=== PATIENT | male | born 1955 | race Caucasian/White ===

== ENCOUNTER → 2021-03-24 | Outpatient (CLI) | payer MEDICARE, OTHER | LOC: WOUNDCARE 08:48 | PROVIDERS: ATTEND Family Medicine | DX: E11.621 Type 2 diabetes mellitus with foot ulcer (principal); I70.261 Atherosclerosis of native arteries of extremities with gangrene, right leg; L97.512 Non-pressure chronic ulcer of other part of right foot with fat layer exposed; E11.65 Type 2 diabetes mellitus with hyperglycemia; E11.40 Type 2 diabetes mellitus with diabetic neuropathy, unspecified; T65.292A Toxic effect of other tobacco and nicotine, intentional self-harm, initial encounter | CPT/HCPCS: A6197; G0463; L4386; 99204 ==

== ENCOUNTER → 2021-03-24 | Outpatient (CLI) | payer MEDICARE, OTHER ==
[2021-03-24 11:27] LABS: BASOPHILS # (AUTO) 0.2 10^3/uL (0.0-0.1); BASOPHILS % (AUTO) 2 % (0-10); EOSINOPHILS # (AUTO) 0.2 10^3/uL (0.0-0.3); EOSINOPHILS % (AUTO) 3 % (0-10); HEMATOCRIT 45 % (40-54); HEMOGLOBIN 14.4 g/dL (13.3-17.7); LYMPHOCYTES # (AUTO) 2.7 10^3/uL (1.0-4.0); LYMPHOCYTES % (AUTO) 31 % (12-44); MEAN CORPUSCULAR HEMOGLOBIN 30 pg (25-34); MEAN CORPUSCULAR HGB CONC 32 g/dL (32-36); MEAN CORPUSCULAR VOLUME 92 fL (80-99); MEAN PLATELET VOLUME 12.9 fL (9.0-12.2); MONOCYTES # (AUTO) 0.7 10^3/uL (0.0-1.0); MONOCYTES % (AUTO) 8 % (0-12); NEUTROPHILS # (AUTO) 4.7 10^3/uL (1.8-7.8); NEUTROPHILS % (AUTO) 56 % (42-75); PLATELET COUNT 201 10^3/uL (130-400); WHITE BLOOD COUNT 8.5 10^3/uL (4.3-11.0)
[2021-03-24 11:34] LABS: ALBUMIN 4.2 GM/DL (3.2-4.5); BILIRUBIN,TOTAL 0.4 MG/DL (0.1-1.0); CALCIUM 9.7 MG/DL (8.5-10.1); CREATININE SERUM 1.56 MG/DL (0.60-1.30); POTASSIUM 4.3 MMOL/L (3.6-5.0); TOTAL PROTEIN 8.4 GM/DL (6.4-8.2)
== END ==
LOC: LAB 10:20
PROVIDERS: ATTEND Family Medicine
DX: E11.621 Type 2 diabetes mellitus with foot ulcer (principal); E11.65 Type 2 diabetes mellitus with hyperglycemia
CPT/HCPCS: 36415; 80053; 83036; 85025

== ENCOUNTER → 2021-03-31 | Outpatient (CLI) | payer MEDICARE, OTHER | LOC: WOUNDCARE 08:05 | PROVIDERS: ATTEND Family Medicine | DX: E11.52 Type 2 diabetes mellitus with diabetic peripheral angiopathy with gangrene (principal); E11.621 Type 2 diabetes mellitus with foot ulcer; E11.65 Type 2 diabetes mellitus with hyperglycemia; E11.40 Type 2 diabetes mellitus with diabetic neuropathy, unspecified; I70.261 Atherosclerosis of native arteries of extremities with gangrene, right leg; T65.222A Toxic effect of tobacco cigarettes, intentional self-harm, initial encounter | CPT/HCPCS: 99213 ==

== ENCOUNTER → 2021-04-07 | Outpatient (CLI) | payer MEDICARE, OTHER | LOC: WOUNDCARE 07:58 | PROVIDERS: ATTEND Family Medicine | DX: E11.621 Type 2 diabetes mellitus with foot ulcer (principal); E11.52 Type 2 diabetes mellitus with diabetic peripheral angiopathy with gangrene; L97.512 Non-pressure chronic ulcer of other part of right foot with fat layer exposed; E11.65 Type 2 diabetes mellitus with hyperglycemia; E11.40 Type 2 diabetes mellitus with diabetic neuropathy, unspecified; I70.235 Atherosclerosis of native arteries of right leg with ulceration of other part of foot; T65.222A Toxic effect of tobacco cigarettes, intentional self-harm, initial encounter | CPT/HCPCS: 11042; G0463 ==

== ENCOUNTER → 2021-04-12 | Outpatient (CLI) | payer MEDICARE, OTHER | LOC: CARD 12:00 | PROVIDERS: ATTEND Internal Medicine Cardiovascular Disease | DX: I11.9 Hypertensive heart disease without heart failure (principal); I08.3 Combined rheumatic disorders of mitral, aortic and tricuspid valves; I25.10 Atherosclerotic heart disease of native coronary artery without angina pectoris | CPT/HCPCS: 93306 ==

== ENCOUNTER → 2021-04-14 | Outpatient (CLI) | payer MEDICARE, OTHER | LOC: WOUNDCARE 07:57 | PROVIDERS: ATTEND Family Medicine | DX: E11.621 Type 2 diabetes mellitus with foot ulcer (principal); L97.512 Non-pressure chronic ulcer of other part of right foot with fat layer exposed; E11.65 Type 2 diabetes mellitus with hyperglycemia; E11.42 Type 2 diabetes mellitus with diabetic polyneuropathy; I70.235 Atherosclerosis of native arteries of right leg with ulceration of other part of foot; T65.222A Toxic effect of tobacco cigarettes, intentional self-harm, initial encounter; M20.41 Other hammer toe(s) (acquired), right foot; E11.52 Type 2 diabetes mellitus with diabetic peripheral angiopathy with gangrene | CPT/HCPCS: 11042; G0463 ==

== ENCOUNTER → 2021-04-21 | Outpatient (CLI) | payer MEDICARE, OTHER | LOC: WOUNDCARE 08:03 | PROVIDERS: ATTEND Family Medicine | DX: E11.40 Type 2 diabetes mellitus with diabetic neuropathy, unspecified (principal); E11.65 Type 2 diabetes mellitus with hyperglycemia; T65.222A Toxic effect of tobacco cigarettes, intentional self-harm, initial encounter; M20.41 Other hammer toe(s) (acquired), right foot | CPT/HCPCS: 99212 ==

== ENCOUNTER → 2021-05-10 | Outpatient (CLI) | payer MEDICARE, OTHER ==
[~2021-05-10] MED LIST: CATHETER FLUSH 10 ML SYR IV PRN; REGADENOSON 0.4 MG/5 ML SYR (LEXISCAN) IV ONE
[2021-05-10 09:10] VITALS: BP 175/84
--- NOTE | 2021-05-10 11:20 | Cardiology Stress Test Report ---
Stress Test Report Date of Procedure/Referring: Date of Procedure: May 10, 2021 PCP Murtaza Khoury MD Admitting Physician No,Local Physician Indications: CAD Baseline Heart Rate: 70 Baseline Blood Pressure: Blood Pressure Systolic: 175 Blood Pressure Diastolic: 84 Baseline Vitals Vital Signs Date Time Temp Pulse Resp B/P (MAP) Pulse Ox O2 Delivery O2 Flow Rate FiO2 05/10/21 09:10 85 16 175/84 (114) 97 Room Air Baseline EKG: Baseline EKG: NSR Summary After explaining the procedure to the patient, he signed a consent and then brought to the stress nuclear laboratory. Patient received 0.4 mg Lexiscan for stress test, ECG, heart rate and blood pressure were monitored continuously. Resting and stress dose of radio tracer were injected, imaging was acquired and reviewed in short axis, horizontal long axis and vertical long axis views. TID: 1.05 SSS: 35 SDS: 8 EF: 23 1. Patient tolerated Lexiscan well 2. Fixed defect involving the lateral wall anterolateral wall and inferolateral wall, mild reversibility at the inferior wall, patient has extensive coronary artery disease and multiple interventions in the past. 3. Prominent left ventricle with diffuse left ventricular hypokinesia more pronounced at the inferior wall and inferolateral wall, ejection fraction 23% MURTAZA KHOURY MD May 10, 2021 11:20
== END ==
LOC: CARD 07:30
PROVIDERS: ATTEND Internal Medicine Cardiovascular Disease
DX: I25.10 Atherosclerotic heart disease of native coronary artery without angina pectoris (principal); I10 Essential (primary) hypertension
CPT/HCPCS: 78452; 93017; A9502

== ENCOUNTER 2021-06-02 11:00 | Day surgery (SDC) | payer MEDICARE, OTHER ==
[~2021-06-02] VITALS: Ht 193 cm; Wt 111.9 kg
[2021-06-02] VITALS (11 sets, daily range): BP systolic 117–166; BP diastolic 66–88
--- OUTSIDE RECORDS SUMMARY | 2021-06-02 08:47 | XMS REPORT | Encounter Summary ---
Author Author [facility] Organization [facility] Address Unknown Phone Unavailable Care Team Providers Care Comfort Station Attendant Name Role Phone Katie Simpson MD Unavailable Katie Simpson MD PCP Yamile Delgado MD Unavailable Devorah Strickland MD Unavailable Gabby Herman RN Unavailable Unavailable Kirsten Marrero RN Unavailable Unavailable Waldemar Sandhu MD Unavailable [phone] Diana Moore MD Unavailable Reason for Visit * Reason Comments Medication Refill Encounter Details Care Team Description Date Type Department Katie Simpson MD [address] [facility] [place] [address] 05/10/2021 Refill Family Medicine: [facility], Medical Pavilion [address] [facility] Level 2, Pod [address] [place] [address] Social History Date Tobacco Use Types Packs/Day Years Used 1973 - 05/29/2020 Current Some Day Smoker Cigarettes 2 51 Smokeless Tobacco: Never Used Comments Alcohol Use Standard Drinks/Week occasionally Yes 0 (1 standard drink = 0.6 o z pure alcohol) Alcohol Habits Answer Date Recorded How often do you have a drink containing alcohol? No t asked How many drinks containing alcohol do you have on No t asked a typical day when you are drinking? How often do you have six or more drinks on one Not asked occasion? Comment: occasionally 11/18/2016 Sex Assigned at Date Recorded Male 10/02/2019 1:54 PM CDT documented as of this encounter Functional Status Date of Assessment Functional Status Response 03/09/2021 Does the patient have a hearing impairment: No 03/09/2021 Does the patient have a visual impairment: Yes 03/09/2021 Does the patient have impaired ambulation: No 03/09/2021 Does the patient have an activity of daily living No (ADL) impairment: 03/09/2021 Does the patient have an instrumental activity of No daily living (IADL) impairment: Date of Assessment Cognitive Status Response 03/09/2021 Does the patient have a cognitive impairment: No documented as of this encounter Plan of Treatment Not on filedocumented as of this encounter Goals Goal Patient Associated Recent Progress Patient-Stat Aut hor Goal Type Problems ed? [facility] Yes Anna Pascual RN documented as of this encounter Visit Diagnoses Not on filedocumented in this encounter Additional Health Concerns Noted Time Assessment 03/09/2021 1:46 PM CDT A fall risk assessment has been complet ed for the patient 09/30/2020 10:00 AM CDT PHQ-2 Depression Total Score: 1 documented as of this encounter Care Teams Start Date End Date Comfort Station Attendant Relationship Specialty 12/24/14 Katie Simpson MD PCP - [address] [address] 12/08/14 Katie Simpson MD [address] [address] 04/01/15 Yamile Delgado MD [facility] [address] Medicine Ortho/Med Pavilion Lvl 1 [place] [address] 04/17/15 Devorah Strickland MD [facility] [address] [facility] Medicine Ortho/Med Pavilion Lvl 1 [place] [address] 04/24/15 Gabby Herman, RN Emergency Medicine 04/27/15 Kirsten Marrero, ERLIN Cardiovascul ar Disease 06/10/15 Waldemar Sandhu, Gastroentero logy [address] [place], [place] [id number] 06/11/15 Diana Moore MD [facility] [address] [facility] Ortho/Med Pavilion Lvl 2B [place], [place] [id number] documented as of this encounter
--- OUTSIDE RECORDS SUMMARY | 2021-06-02 08:47 | XMS REPORT | Encounter Summary ---
Author Author [facility] Organization [facility] Address Unknown Phone Unavailable Care Team Providers Care Ambulance Driver Name Role Phone Katie Simpson MD Unavailable Katie Simpson MD PCP Yamile Delgado MD Unavailable Devorah Strickland MD Unavailable Gabby Herman RN Unavailable Unavailable Kirsten Marrero RN Unavailable Unavailable Waldemar Sandhu MD Unavailable [phone] Diana Moore MD Unavailable Reason for Visit * Reason Comments Medication Refill Encounter Details Care Team Description Date Type Department Katie Simpson MD [address] [facility] [place] [address] 05/10/2021 Refill Family Medicine: [facility], Medical Pavilion [address] [facility] Level 2, Pod [address] [place] [address] Social History Date Tobacco Use [...] impairment: No documented as of this encounter Ordered Prescriptions Start Date End Date Prescription Sig Dispensed Refills 05/10/2021 glimepiride (AMARYL) 4 mg TAKE 2 60 tablet 0 tablet TABLETS BY MOUTH EVERY MORNING documented in this encounter Miscellaneous Notes * Telephone Encounter - Asiya Joshua - 05/10/2021 2:07 PM TELEPHONE ORDER SUPERVISOR Pt was last seen 09/30/2020. PHONE ORDER SUPERVISOR documented in this encounter Plan of Treatment Not on filedocumented as of this encounter Goals Goal Patient Associated Recent Progress Patient-Stat Aut hor Goal Type Problems ed? [facility] Yes Anna Pascual RN documented as of this encounter Visit Diagnoses Not on filedocumented in this encounter Discontinued Medications Start Date End Date Medication Sig Discontinue Reason 02/12/2021 05/10/2021 glimepiride (AMARYL) 4 mg TAKE 2 tablet TABLETS BY MOUTH EVERY MORNING documented as of this encounter Additional Health Concerns Noted Time Assessment 03/09/2021 1:46 PM CDT A fall risk assessment has been complet ed for the patient 09/30/2020 10:00 AM CDT PHQ-2 Depression Total Score: 1 documented as of this encounter Care Teams Start Date End Date Ambulance Driver Relationship Specialty 12/24/14 Katie Simpson MD PCP - General Family [address] Medicine [facility] Pod [address] [place] [address] 12/08/14 Katie Simpson MD Family [address] [facility] Medicine [facility] [place] [address] 04/01/15 Yamile Delgado MD Family [address] [facility] Medicine Ortho/Med Pavilion Lvl 1 [place] [address] 04/17/15 Devorah Strickland MD Family [address] [facility] Medicine Ortho/Med Pavilion Lvl 1 [place] [address] 04/24/15 Gabby Herman, RN Emergency Medicine 04/27/15 Kirsten Marrero, ERLIN Cardiovascul ar Disease 06/10/15 Waldemar Sandhu, Gastroentero MD [address] [place] [address] 06/11/15 Diana Moore MD [facility] [address] [facility] logy Ortho/Med Pavilion Lvl [address]B [place] [address] documented as of this encounter
--- OUTSIDE RECORDS SUMMARY | 2021-06-02 08:47 | XMS REPORT | Encounter Summary ---
Author Author [facility] Organization [facility] Address Unknown Phone Unavailable Care Team Providers Care Four Slide Operator Name Role Phone Katie Simpson MD Unavailable Katie Simpson MD PCP Yamile Delgado MD Unavailable Devorah Strickland MD Unavailable Gabby Herman RN Unavailable Unavailable Kirsten Marrero RN Unavailable Unavailable Waldemar Sandhu MD Unavailable [phone] Diana Moore MD Unavailable Reason for Visit * Reason Comments Medication Refill Encounter Details Care Team Description Date Type Department Katie Simpson MD [address] [facility] [place] [address] Type 2 diabetes mellitus with diabetic p olyneuropathy, with long-term current use of insulin ([facility]) 04/28/2021 Refill Family Medicine: [facility] [address] [facility] [address] [place] [address] Social History Date Tobacco Use Types Packs/Day [...] impairment: No documented as of this encounter Miscellaneous Notes * Telephone Encounter - Avinash Madrid - 04/28/2021 6:46 PM WEB RETAILER Some Protocol elements NOT Met Medication name: insulin degludec Medication Strength: 18units/daily Office visit due and Labs due Provider not on approved list. Routed to Provider RETAILER documented in this encounter Plan of Treatment Not on filedocumented as of this encounter Goals Goal Patient Associated Recent Progress Patient-Stat Aut hor Goal Type Problems ed? [facility] Yes Anna Pascual RN documented as of this encounter Visit Diagnoses Diagnosis Type 2 diabetes mellitus with diabetic polyneuropathy, with long-term current use of insulin (HCC) documented in this encounter Additional Health Concerns Noted Time Assessment 03/09/2021 1:46 PM CDT A fall risk assessment has been complet ed for the patient 09/30/2020 10:00 AM CDT PHQ-2 Depression Total Score: 1 documented as of this encounter Care Teams Start Date End Date Four Slide Operator Relationship Specialty 12/24/14 Katie Simpson MD PCP - General [place] [address] [address] [facility] [address] [place] [address] 12/08/14 Katie Simpson MD [place] [address] [facility] [place] [address] 04/01/15 Yamile Delgado MD [facility] [address] [facility] Medicine Ortho/Med Pavilion Lvl 1 [place] [address] 04/17/15 Devorah Strickland MD [facility] [address] [facility] Medicine Ortho/Med Pavilion Lvl 1 [place] [address] 04/24/15 Gabby Herman, ERLIN Emergency Medicine 04/27/15 Kirsten Marrero, ERLIN Cardiovascul ar Disease 06/10/15 Waldemar Sandhu, Gastroentero logy [address] [place] [address] 06/11/15 Diana Moore MD [facility]astro[facility] [address] [facility] logy Ortho/Med Pavilion Lvl 2B [place] [address] documented as of this encounter
--- OUTSIDE RECORDS SUMMARY | 2021-06-02 08:47 | XMS REPORT | Encounter Summary ---
Author Author [facility] Organization [facility] Address Unknown Phone Unavailable Care Team Providers Care Seismic Interpreter Name Role Phone Katie Simpson MD Unavailable Katie Simpson MD PCP Yamile Delgado MD Unavailable Devorah Strickland MD Unavailable Gabby Herman RN Unavailable Unavailable Kirsten Marrero RN Unavailable Unavailable Waldemar Sandhu MD Unavailable [phone] Diana Moore MD Unavailable Reason for Visit * Reason Comments Medication Refill Encounter Details Care Team Description Date Type Department Katie Simpson MD [address] [facility] [place] [address] Type 2 diabetes mellitus with diabetic p olyneuropathy, with long-term current use of insulin (HCC) 04/29/2021 Refill Family Medicine: [facility] [address] [facility] [address], [address] [place] [address] Social History Date Tobacco Use [...] Patient-Stat Aut hor Goal Type Problems ed? [facility] Yes Anna Pascual RN documented as [...] encounter Care Teams Start Date End Date Seismic Interpreter Relationship Specialty 12/24/14 Katie Simpson MD PCP - General [address] [place] [address] 12/08/14 Katie Simpson MD [address] [place] [address] 04/01/15 Yamile Delgado MD [facility] [address] [facility] Medicine Ortho/Med Pavilion Lvl 1 [place] [address] 04/17/15 Devorah Strickland MD Family [address] [facility] Medicine Ortho/Med Pavilion Lvl 1 [place] [address] 04/24/15 Gabby Herman, RN Emergency Medicine 04/27/15 Kirsten Marrero, ERLIN Cardiovascul ar Disease 06/10/15 Waldemar Sandhu, Gastroentero logy [address] [place] [address] 06/11/15 Diana Moore MD Gastro[facility]ero [address] [facility] logy Ortho/Med Pavilion [address]vl [address] [place] [address] documented as of this encounter
--- OUTSIDE RECORDS SUMMARY | 2021-06-02 08:47 | XMS REPORT | Clinical Summary ---
Author Author [facility] Organization [facility] Address Unknown Phone Unavailable Care Team Providers Care Canal Driver Name Role Phone Katie Simpson MD Unavailable Katie Simpson MD PCP Yamile Delgado MD Unavailable Devorah Strickland MD Unavailable Gabby Herman RN Unavailable Unavailable Kirsten Marrero RN Unavailable Unavailable Waldemar Sandhu MD Unavailable [phone] Diana Moore MD Unavailable Source Comments Some departments are not documenting in the electronic medical record. If you d o not see the information that you expected, contact Release of Information in [facility] Health Information Management department at [phone] for further assistan ce in locating additional records.[facility] Allergies Comments Active Allergy Reactions Severity Noted Date Penicillins SWOLLEN High 12/08/2014 TONGUE Medications End Date Status Medication Sig Dispensed Refills Start Date Active aspirin EC 81 mg tablet Take 81 mg by 0 mouth daily. Active Blood-Glucose Meter kit Freestyle 1 kit 0 lite meter. 9 Use as directed daily along with test strip and lancets. Active acetaminophen (TYLENOL) You can take 0 500 mg tablet 1000 mg by 9 mouth every 6-8 hours. Max of 4,000 mg of acetaminophen in 24 hours. Active cyanocobalamin (VITAMIN Take 500 mcg 0 B-12) 500 mcg tablet by mouth daily. Active lancets MISC Use one each 300 each 2 as directed 0 three times daily. Additional Information Patient taking differently: 1 each Test DAILY, Checks BG 1-2 times daily, Reported on 07/28/2020 Active blood sugar diagnostic Use one strip 200 strip 3 0 test strip as directed 0 three times daily. Freestyle lite test strips Additional Information Patient taking differently: 1 strip Misc.(Non-Brant g; Combo Route) DAILY, Freestyle lite test strips Checks BG 1-2 times daily, Reported on 07/28/2020 Active nitroglycerin (NITROSTAT) Place one 25 tablet 1 0.4 mg tablet tablet under 0 tongue every 5 minutes as needed for Chest Pain. Active sotaloL (BETAPACE) 80 mg Take one 180 tablet 3 tablet tablet by 0 mouth twice daily. Active fenofibrate Take one 90 tablet 3 nanocrystallized (TRICOR) tablet by 1 145 mg tablet mouth daily. Take with food. Active atorvastatin (LIPITOR) 40 Take one 30 tablet 11 mg tabletIndications: tablet by 1 hyperlipidemia mouth daily. Indications: excessive fat in the blood Active BD UF LUCIE PEN NEEDLES 32 USE DAILY 200 each 1 gauge x 5/32" pen DIRECTED 1 needleIndications: Type 2 diabetes mellitus with other circulatory complication, without long-term current use of insulin (HCC) Active primidone (MYSOLINE) 50 Take one 90 tablet 5 mg tablet tablet by 1 mouth daily. Wk 1: 1/2 tab QHS, Wk 2: 1 tab at night, Wk 3: 1.5 tab QHS then 2 tab at night Active amLODIPine (NORVASC) 10 Take one 90 tablet 3 mg tablet tablet by 1 mouth daily. 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 Indications: type 2 diabetes mellitus Active metFORMIN-XR (GLUCOPHAGE TAKE 2 120 tablet 0 1 XR) 500 mg extended TABLETS BY 1 release tablet MOUTH TWICE DAILY Active insulin degludec (TRESIBA Inject 45 mL 1 FLEXTOUCH U-100) 100 eighteen 1 unit/mL (3 mL) injection Units under penIndications: type 2 the skin at diabetes mellitus bedtime daily. Indications: type 2 diabetes mellitus Active glimepiride (AMARYL) 4 mg TAKE 2 60 tablet 0 tablet TABLETS BY 1 MOUTH EVERY MORNING 05/10/2021 Discontinued glimepiride (AMARYL) 4 mg TAKE 2 180 tablet 0 tablet TABLETS BY 1 MOUTH EVERY MORNING Active Problems Problem Noted Date Amputation of right great toe 09/22/2020 Overview: Formatting of this note might be differ ent from the original. 09/22/20 L ast Assessment & Plan: Formatting of this note might be differ ent from the original. Running stitch removed. Others remain. Cont with dressing changes. Heriberto wound dry. Call w concerns. WBAT in [facility] Osteomyelitis of right foot 09/07/2020 Angiopathy, diabetic 06/24/2020 Non-pressure chronic ulcer of right heel and midfoot with fat layer exposed 06/24/2020 Non-pressure chronic ulcer of other part of right joshua t with fat layer 06/24/2020 exposed Right foot ulcer 06/10/2020 PVD (peripheral vascular disease) 06/10/2020 Laceration of finger, right, with tendon 10/02/2019 Chronic systolic heart failure 07/01/2019 Paroxysmal atrial fibrillation 07/01/2019 Chronic kidney disease, stage 3 07/01/2019 Type 2 diabetes mellitus with diabetic neuropathy, wi thout long-term 07/01/2019 current use of insulin Type 2 diabetes mellitus with stage 3 chronic kidney disease, without 07/01/2019 long-term current use of insulin Peripheral vascular disease 11/05/2018 Overview: Formatting of this note might be differ ent from the original. 06/10/2020-AARO with drug coated balloon angioplasty of the right SFA and right TP trunk/proximal PT arteries Claudication 07/23/2018 Encounter for screening for lung cancer 02/09/2018 Type 2 diabetes mellitus with diabetic polyneuropathy , without long-term 05/15/2017 current use of insulin Arthritis of both knees 05/15/2017 ICD (implantable cardioverter-defibrillator), dual, i n situ 03/17/2016 Overview: Formatting of this note might be differ ent from the original. 03/17/16 Medtronic (dual-chamber) IC D - Dr. 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 09/28/2004-[facility]- CABGx3- SV G to Posterior ascending; SVG to OM; FERNANDO to LAD 07/03/10-[facility] [employer] [facility]-Cath- PCI Wi th SURAJ to Vein Graft of RCA 07/03/1038-[facility]-EF 35%; dilated LV; mild Mitral insufficiency, trace TR; 02/17/1655-Xmpyoxxa-htdm prior infarct inv olving the inferior, inferolateral and lateral cano. There is a mild degr ee of periinfarct ischemia. There is some viability in the mid to apical inf erior, lateral and inferolateral wall. There does not appear to be viabi lity in the more basal segments, at least after about a 4 hour delay.EF 36% 02/18/1665-Rqah-Cxeetdovbn LV cavity dilat ion with thinned and akinetic interior and inferior lateral cnao. The septal wall has moderate hypertrophy without LVOT obstruction; E F 30-35%. Grade I diastolic function is present; Qualitative RV siz e and function are within normal limits Normal atria sizes; Mild mitral regurgitation; Pulmonary systolic pressure could not be accurately estima cesar due to lack of significant tricuspid regurgitant jet 02/18/16: Cath showed occluded grafts to RCA and to OMB - no intervention 07/23/18-cardiac catheterization. FERNANDO g raft to LAD was patent. REGULATORY PRODUCT MANAGER of the [place] RCA. 90% proximal and 100% total chronic total occlusion in the distal left circumflex artery, treated with drug-eluting stent 2.25 x 28 Xience Jennie distally and a 2.55 x 33 Xience Jennie proximally Type 2 diabetes mellitus with other circulatory compl ications 12/12/2014 Essential hypertension 12/12/2014 Neuropathy Resolved Problems Problem Noted Date Resolved Date Nicotine dependence, cigarettes, uncomplicated 04/10/2018 09/30/2020 Personal history of tobacco use 02/09/20182017 Unstable angina 02/17/2016 05/15/2017 Tobacco use 02/17/2016 04/10/2018 Weight loss 06/10/2015 04/10/2018 Emesis 04/25/2015 02/18/2016 Pancreatitis 04/25/2015 04/10/2018 Encounters Care Team Description Date Type Specialty Katie Simpson MD 05/10/2021 Refill Family Medicine Katie Simpson MD 05/10/2021 Refill Family Medicine Katie Simpson MD Type 2 diabetes mellitus with diabetic p olyneuropathy, with long-term current use of insulin (HCC) 04/29/2021 Refill Family Medicine Katie Simpson MD Type 2 diabetes mellitus with diabetic p olyneuropathy, with long-term current use of insulin (HCC) 04/28/2021 Refill Family Katie Álvarez MD 04/19/2021 Refill Family Medicine Katie Simpson MD 04/19/2021 Refill Family Medicine Dion Peñaloza MD Medication Refill 04/19/2021 Refill Cardiology Bisi Petersen, ERLIN 04/15/2021 Documentation Cardiothoracic Surg Iva Chatterjee, PHARMD Type 2 diabetes mellitus with diabetic p olyneuropathy, without long-term current use of insulin (HCC) (Primary Dx) 04/14/2021 Clinical Family Medicine Support Hu Keith, ERLIN Remote Monitoring Transferred (to [facility]) 04/05/2021 Telephone Cardiology Lindsey Albrecht RN Other 04/02/2021 Telephone Cardiology Dasia Elizalde, director of medical services Request (Pt transferring care) 03/30/2021 Telephone Cardiology Iva Norris PHARMD Type 2 diabetes mellitus with diabetic p olyneuropathy, without long-term current use of insulin (HCC) (Primary Dx) 03/24/2021 Clinical Family Medicine Support Katie Simpson MD Type 2 diabetes mellitus with diabetic p olyneuropathy, with long-term current use of insulin (HCC) 03/24/2021 Refill General Internal Ma Walter Mata MD Type 2 diabetes mellitus with diabetic p olyneuropathy, with long-term current use of insulin (HCC) 03/22/2021 Refill Family Medicine Devan Centeno MD 03/19/2021 Hospital Cardiology Encounter Katie Simpson MD Type 2 diabetes mellitus with diabetic p olyneuropathy, with long-term current use of insulin (HCC) 03/19/2021 Refill Family Medicine Aparna Pierce BSN Follow Up 03/16/2021 Telephone Cardiology Katie Simpson MD Referral 03/10/2021 Telephone Family Medicine Katie Simpson MD Referral 03/10/2021 Telephone Internal Medicine Dion Peñaloza MD Hypertension; Atrial fibrillation 03/09/2021 Office Visit Cardiology 03/09/2021 Travel Katie Simpson MD Hypothyroidism due to acquired atrophy o f thyroid 03/08/2021 Refill Family Medicine from Last 3 Months Immunizations Name Administration Dates Next Due Flu Vaccine =>6 Months 04/10/2018, 05/15/2017 Quadrivalent PF Flu Vaccine =>65 YO 04/03/2019 High-Dose (PF) Flu Vaccine =>65 YO 03/04/2020 High-Dose Quadrivalent (PF) Flu Vaccine Quadrivalent 02/19/2016 =>3 Yo (Preservative Free) Flu Vaccine Trivalent =>3 02/10/2015 Yo (Preservative Free) Pneumococcal Vaccine 10/03/2018 (23-Lisseth Adult) Pneumococcal 02/23/2016 Vaccine(13-Liss[facility] Peds/immunocompromised adult) Tdap Vaccine 07/11/2018 Surgical History Surgery Date Site/Laterality Comments HX CHOLECYSTECTOMY HX TONSILLECTOMY CATARACT REMOVAL WITH IMPLANT HX VASECTOMY ELECTROCARDIOGRAM FINGER SURGERY HX CORONARY ARTERY BYPASS 05/29/2004 - X3 GRAFT 05/28/2005 HX CORONARY STENT 2018 X1, 2019 X2 PLACEMENT ICD PLACEMENT 02/27/2016 Medtronic - 03/28/2016 CARDIAC CATHERIZATION 05/29/2020 - R Iliac filter, arthrectomy, balloon 06/28/2020 AMPUTATION 09/07/2020 Toe/Right AMPUTATION TOE AT METATARSOPHALANGEAL JOINT performed by Alan Teixeira MD at [facility] OR Medical History Medical History Date Comments Thyroid disease DM (diabetes mellitus) (HCC) Allergy Arthritis Embolism and thrombosis of unspecified artery (HCC) Cataract Hypertension Adverse drug reaction Type 2 diabetes mellitus (HCC) 02/17/2016 Tobacco use 02/17/2016 Obesity (BMI 30.0-34.9) 02/17/2016 Hypothyroid 02/17/2016 Hyperlipidemia 02/17/2016 Essential hypertension 12/12/2014 CAD (coronary artery disease), [place] 12/12/2014 coronary artery Hx of CABG 02/18/2016 Peripheral vascular disease (HCC) 11/05/2018 Laceration of finger, right, with 10/02/2019 tendon Chest pain Heart palpitations Neuropathy RLE>LLE, numbness/tingling/ pain, numbness in hands Abnormal involuntary movement Right foot ulcer (HCC) 06/10/2020 Stroke ([facility]) Incidental finding on imagining - no deficits Action tremor Myocardial infarction (HCC) Atrial fibrillation (HCC) Nicotine dependence, cigarettes, 04/10/2018 uncomplicated Family History Medical History Relation Name Comments Heart problem Brother Hypertension Brother Heart problem Father Hypertension Father Diabetes Sister Early Son massive [place] Cancer Neg Hx Relation Name Status Comments Brother Alive Father Sister Son Social History Date Tobacco Use Types Packs/Day Years Used 1973 - 05/29/2020 Current Some Day Smoker Cigarettes 2 51 Smokeless Tobacco: Never Used Tobacco Cessation: Ready to Quit: No; Co unseling Given: No Comments Alcohol Use Standard Drinks/Week occasionally Yes [...] Date Recorded Male 10/02/2019 1:54 PM CDT Last Filed Vital Signs Reading Time Taken Comments Vital Sign 147/75 03/09/2021 2:04 PM CDT Blood Pressure 76 03/09/2021 1:46 PM CDT Pulse 36.6 C (97.9 F) 12/22/2020 7:45 AM CDT Temperature 18 12/22/2020 7:45 AM CDT Respiratory Rate 99% 03/09/2021 1:46 PM CDT Oxygen Saturation - - Inhaled Oxygen Concentration 112.4 kg (247 lb 12.8 oz) 03/09/2021 1:46 PM CDT Weight 193 cm (6' 4") 03/09/2021 1:46 PM CDT Height 30.16 03/09/2021 1:46 PM CDT Body Mass Index Plan of Treatment Health Maintenance Due Date Last Done Comments HBA1C 12/08/2020 09/08/2020, 05/11/2020, 01/13/2020, Additional history exists INFLUENZA VACCINE 12/27/2020 03/04/2020, 04/03/2019, 04/03/2019, Additional history exists FOOT EXAM 01/12/2021 01/13/2020, 01/13/2020, 09/30/2019, Additional history exists MEDICARE ANNUAL WELLNESS 09/30/2021 09/30/2020, VISIT 09/30/2020, 09/30/2019, Additional history exists PHYSICAL (COMPREHENSIVE) 09/30/2021 09/30/2020, EXAM 10/03/2018, 05/15/2017, Additional history exists COLORECTAL (COLOGUARD, 10/18/2021 10/18/2018 FECAL DNA) CANCER SCREENING DILATED EYE EXAM 03/09/2022 03/09/2021, 10/30/2018, 10/30/2018, Additional history exists DTAP/TDAP VACCINES (2 - 07/11/2028 07/11/2018 Td or Tdap) SHINGLES RECOMBINANT 10/03/2028 Postponed from (Insurance/Financial) VACCINE (1 of 2) HEPATITIS C SCREENING Completed 05/11/2016 PNEUMONIA (PPSV23) Completed 10/03/2018, VACCINE 02/23/2016 ABDOMINAL AORTIC ANEURYSM Completed 10/19/2018 SCREENING LUNG CANCER SCREENING Completed 03/10/2020, 03/04/2019, 02/09/2018 Goals Goal Patient Associated Recent Progress Patient-Stat Aut hor Goal Type Problems ed? [facility] Yes Anna Pascual, ERLIN Implants Device Identifier Shelf Expiration Date Model / Serial / L ot Implanted Type Area Manufactur er Pacemaker Pacemaker Left: Chest MEDTRONIC CARDIOVASC ULAR Procedures Comments Procedure Name Priority Date/Time Associated Diag nosis DEVICE EVALUATION - Routine 03/31/2021 ICD (impla ntable REMOTE ICD CHARGES 9:01 AM CDT cardioverter-defib rillato r) in place DIABETES EYE EXAM WITH Routine 03/09/2021 EVIDENCE OF RETINOPATHY ECG-SCAN 03/09/2021 12:00 AM CDT from Last 3 Months Results * DEVICE EVALUATION - REMOTE ICD CHARGES (03/31/2021 9:01 AM CDT) Device Type ICD MURJ Device Carelink Express MURJ [place] Transmitter Compatible Atrial Lead 5076-52cm MURJ Model # Atrial Lead [id number] MURJ Serial # Atrial Lead 03/17/2016 MURJ Implant Date Atrial Lead 10 MURJ Diaph. Stimulation Atrial Lead Medtronic MURJ Residential Tech Atrial Lead active fixation MURJ Fixation Atrial Lead right atrial appendage MURJ Location Atrial Lead Pin IS1 MURJ Connector Atrial Lead Bipolar MURJ Polarity RV Lead Model # 6935M-62cm MURJ RV Lead Serial [id number] MURJ # RV Lead Implant 03/17/2016 MURJ Date RV Lead Apical Septum MURJ Location Other RV Lead Diaph. 10 MURJ Stimulation RV Lead Medtronic MURJ Residential Tech RV Lead active fixation MURJ Fixation RV Lead Coil Single MURJ Generator Medtronic MURJ Residential Tech Generator Model Evera MRI XT [id number] [facility] # Generator [id number] MURJ Serial # Generator [id number] MURJ Implnat Date EP DEVICE 06/2020 FDA Class I recall september MUR PATIENT NOTES experience a shortened MANAGER PEOPLE to EOS interval following an earlier than expected MANAGER PEOPLE observation. Gen change immediately if PPM dependent. Gen change within one week if not PPM dependent. Pacemaker no MURJ Dependant On no MURJ Anticoagulation EP SYSTEM MRI yes MURJ CONDITIONAL Modality Anatomical Region Laterality MAC CV Heart Rhythm Specimen Narrative MURJ - 03/20/2021 12:11 PM CDT Title: Normal Remote: No Events * Normal Device Function * Alerts or events: None * Battery: OK, 4.00 yrs * Sensing, impedance and thresholds reviewed * Programmed parameters reviewed * Presenting rhythm -VS NSR 76 bpm * Heart Rate Histograms reviewed * No significant changes noted Title: Heart Failure Diagnostic: Stable * Heart failure diagnostics assessed through the device * Status: Stable Title: Short V-V Intervals * Short ventricular intervals detected through device * Short interval Count 1 * Lead is stable. Performing Organization Address City/State/ZIP Code P tor[place] Number MURJ * DIABETES EYE EXAM WITH EVIDENCE OF RETINOPATHY (03/09/2021) Narrative Performing Organization Address City/State/ZIP Code [place] Number IN CLINIC * ECG-SCAN (03/09/2021 12:00 AM CDT) Narrative 03/09/2021 12:00 AM CDT Ordered by an unspecified provider. from Last 3 Months Insurance Type Payer Benefit Subscriber ID Effective Phone Address Plan / Dates Group Medicare MEDICARE MEDICARE [id number] 2019- [phone] [address] AND Present [address] [place] [address] O HUMANA HUMANA [id number] 2019-P [phone] [address] [address] [place] [address] Advance Directives Patient Rebeamer Explanation Type Date Recorded Advance 03/17/2016 7:32 AM Directive/DPOA Date Inactivated Comments Code Status Date Activated 09/08/2020 1:29 PM Full Code 09/07/2020 11:33 AM Provider has discussed Code Status No, discussion no t w/Patient or Family? necessary based on Dx 06/11/2020 2:27 PM Full Code 06/10/2020 9:28 AM Provider has discussed Code Status No, discussion no t w/Patient or Family? necessary based on Dx 11/05/2018 8:11 PM Full Code 11/05/2018 7:16 AM Provider has discussed Code Status No, discussion no t w/Patient or Family? necessary based on Dx 07/24/2018 11:25 AM Full Code 07/23/2018 6:29 AM Provider has discussed Code Status No, discussion no t w/Patient or Family? necessary based on Dx 03/18/2016 1:06 PM Full Code 03/17/2016 2:09 PM Provider has discussed Code Status No, more discussi on w/Patient or Family? needed Care Teams Start Date End Date Canal Driver Relationship Specialty 12/24/14 Katie Simpson MD PCP - [address] [address] 12/08/14 Katie Simpson MD [address] [place] [address] 04/01/15 Yamile Delgado MD [facility] [address] [facility] Medicine Ortho[facility] [address]vl [address] [place] [address] 04/17/15 Devorah Strickland MD [facility] [address] Medicine Ortho[facility]Med Pavilion Lvl [address] [place] [address] 04/24/15 Gabby Herman, RN Emergency Medicine 04/27/15 Kirsten Marrero, ERLIN Cardiovascul ar Disease 06/10/15 Waldemar Sandhu [facility] [address] [place] [address] 06/11/15 Diana Moore MD [facility] [address] logy Ortho[facility]Med Pavilion [address] [place] [address]
--- OUTSIDE RECORDS SUMMARY | 2021-06-02 08:48 | XMS REPORT | Encounter Summary ---
Author Author [facility] Organization [facility] Address Unknown Phone Unavailable Care Team Providers Care Plate Corrector Name Role Phone Katie Simpson MD Unavailable Katie Simpson MD PCP Yamile Delgado MD Unavailable Devorah Strickland MD Unavailable Gabby Herman RN Unavailable Unavailable Kirsten Marrero RN Unavailable Unavailable Waldemar Sandhu MD Unavailable [phone] Diana Moore MD Unavailable Reason for Visit * Reason Comments Pharmacy Medication Therapy Management Encounter Details Care Team Description Date Type Department Iva Norris, PHARMD Type 2 diabetes mellitus with diabetic p olyneuropathy, without long-term current use of insulin (HCC) (Primary Dx) 04/14/2021 Clinical Family Medicine: [facility] [address], [address] [place] [address] Social History Date Tobacco Use [...] impairment: No documented as of this encounter Progress Notes * Iva Norris, PHARMD - 04/14/2021 1:00 PM COMPLIANCE FIELD TECHNICIAN A comprehensive medication management follow up visit was completed today via jared ocasio. At the last visit, patient was instructed to (see below). Patient repor ts making all recommended medication changes following the last visit. Today, johnny henderson states (see below). Referral reason: High cost medication and Diabetes Management Lab Results Component Value Date/Time HGBA1C 8.1 (H) 09/08/2020 04:39 AM HGBA1C 9.2 (H) 10/03/2018 10:14 AM HGBA1C 8.6 (H) 04/10/2018 10:50 AM Referred by: Katie Simpson MD At the last visit, patient was instructed to: - continue metformin XR 1000mg twice daily - continue glimepiride 8mg with breakfast - continue Tresiba 18 units daily at bedtime (through patient assistance) - needs new HgA1c, ALIA/Cr ratio, and vitamin B12 level - PharmD will f/u with medication assistance team regarding patient assistance application for Tresiba Patient reports making all recommended medication changes following the last vis it. Today, patient states his BG readings have been variable. Current Diabetes Medication Regimen - metformin XR 1000mg twice daily - glimepiride 8mg with breakfast - Tresiba 18 units daily at bedtime (through patient assistance) Blood Glucose Time checking: FBG Date FBG Pre-Dinner 04/13 130-170 80-100 Hypoglycemic event(s): denies - last hypoglycemic episode 2-3 weeks previously Diet and Exercise Recent changes: is cooking healthy meals for patient Eats 3 meals per day Breakfast: banana bread, cereal, peanut butter, toast, eggs Lunch ( fixes lunch): leftovers Dinner: meat (chicken, turkey), vegetable, carbohydrates (rice) Snack: Chex mix, peanut butter crackers Beverages: coffee, water, diet Coke (10-16 oz per day) Exercise: none due to right big toe amputation CV Disease and Risk Management Low dose aspirin: Yes and Plavix ESPERANZA-I/ARB: Yes, losartan 100mg daily Statin use: Yes, atorvastatin 40mg daily Smoker: Former A medication history and reconciliation were performed (including prescription m edications, supplements, over the counter, and herbal products). The medication list was updated and the patients current medication list is included below. Current medications were confirmed by patient via verbal confirmation. Home Medications Medication Sig acetaminophen (TYLENOL) 500 mg tablet You can take 1000 mg by mouth every 6-8 ho urs. Max of 4,000 mg of acetaminophen in 24 hours. amLODIPine (NORVASC) 10 mg tablet Take one tablet by mouth daily. aspirin EC 81 mg tablet Take 81 mg by mouth daily. atorvastatin (LIPITOR) 40 mg tablet Take one tablet by mouth daily. Indications: excessive fat in the blood BD UF LUCIE PEN NEEDLES 32 gauge x 5/32" pen needle USE DAILY DIRECTED blood sugar diagnostic test strip Use one strip as directed three times daily. F reestyle lite test strips Patient taking differently: Use 1 strip as directed daily. Freestyle lite test s trips Checks BG 1-2 times daily Blood-Glucose Meter kit Freestyle lite meter. Use as directed daily along with t est strip and lancets. cyanocobalamin (VITAMIN B-12) 500 mcg tablet Take 500 mcg by mouth daily. fenofibrate nanocrystallized (TRICOR) 145 mg tablet Take one tablet by mouth lucinda ly. Take with food. gabapentin (NEURONTIN) 300 mg capsule 1 po daily prn and 3 po at HS Indications : neuropathic pain glimepiride (AMARYL) 4 mg tablet TAKE 2 TABLETS BY MOUTH EVERY MORNING insulin degludec (TRESIBA FLEXTOUCH U-100) 100 unit/mL (3 mL) injection pen Inje ct eighteen Units under the skin at bedtime daily. Indications: type 2 diabetes mellitus lancets MISC Use one each as directed three times daily. Patient taking differently: Use 1 each as directed daily. Checks BG 1-2 times da nery levothyroxine (SYNTHROID) 200 mcg tablet TAKE 1 TABLET BY MOUTH DAILY 30 MINUTES BEFORE BREAKFAST losartan (COZAAR) 100 mg tablet TAKE 1 TABLET BY MOUTH DAILY metFORMIN-XR (GLUCOPHAGE XR) 500 mg extended release tablet TAKE 2 TABLETS BY MO UTH TWICE DAILY nitroglycerin (NITROSTAT) 0.[address] one tablet under tongue every 5 mi nutes as needed for Chest Pain. primidone (MYSOLINE) 50 mg tablet Take one tablet by mouth daily. Wk 1: 1/2 tab QHS, Wk 2: 1 tab at night, Wk 3: 1.5 tab QHS then 2 tab at night sotaloL (BETAPACE) 80 mg tablet Take one tablet by mouth twice daily. torsemide (DEMADEX) 20 mg tablet TAKE 1 TABLET BY MOUTH DAILY There are no discontinued medications. No orders of the defined types were placed in this encounter. Adherence/Refill history: Steve Izaguirre states: they are adherent with refills. Drug interactions: not assessed Adverse Effects: No Assessment and plan Allergies and pertinent labs were reviewed to assess for medication efficacy & safety. Medication Assessment & Plan Problem #1: Diabetes Regimen Assessment: Needs Additional Monitoring for Effectiveness Diabetes uncontrolled as reflected by reported home blood sugars (goal <130-150 per ADA) and most recent A1C of 8.1% on 09/08/20 (goal <7-8% per ADA guidelines andextensive hx of ASCVD - CAD, hx of CABG, PVD).FBG readings variable with most readings above goal while pre-dinner BG readings within goal. Patient has still not received Tresiba from medication assistance and is having to buy single Tresiba pens for $35. PharmD will follow up with medication assistance team regarding patient assistance application for Tresiba. Of note, patient is working to find a new PCP closer to where he lives. Last eGFR 47 ml/min on 09/08/20. Last ALIA/Cr ratio showing macroalbuminuria in 2018. Patient a ppropriately prescribed ARB. Last vitamin B12 wnl in 2015. Plan: - continue metformin XR 1000mg twice daily - continue glimepiride 8mg with breakfast - continue Tresiba 18 units daily at bedtime (through patient assistance) - needs new HgA1c, ALIA/Cr ratio, and vitamin B12 level - PharmD will f/u with medication assistance team regarding patient assistance application for Tresiba Education: - Reviewed goals of therapy - Discussed management of hypoglycemia - Encouraged lifestyle management - Instructed to check blood sugars 1-2 time(s) per day - Discussed insulin injection administration technique and timing Follow up: pharmacist will follow up with specialty provider regarding Tresiba patient assistance application Patient Instructions Please call [phone] with any questions. Thank you for visiting with us today! We are happy to have taken part in your ca re! Time spent with patient: 10 minutes Visit diagnoses: Steve Izaguirre was seen today for pharmacy medication therapy management. Diagnoses and all orders for this visit: Type 2 diabetes mellitus with diabetic polyneuropathy, without long-term current use of insulin (HCC) ADDENDUM on 04/29/21 at 8:15am PharmD received notice from medication assistance team that patient's Tresiba ap plication was approved from 04/19/21 until 05/28/21. Medication assistance team to work on completing new application for 2021. Patient moved and is working to find new PCP. PharmD will discharge patient as patient is no longer receiving ca re at for primary care services. Plan: find new PCP and begin follow up for chronic medical conditions Follow up: pharmacist visit(s) completed, pharmacist will no longer follow LIANCE FIELD TECHNICIAN documented in this encounter Miscellaneous Notes * Patient Instructions - Iva Norris PHARMD - 04/14/2021 1:00 PM COMPLIANCE FIELD TECHNICIAN Please call [phone] with any questions. Thank you for visiting with us today! We are happy to have taken part in your ca re! LIANCE FIELD TECHNICIAN documented in this encounter Plan of Treatment Not on filedocumented as of this encounter Goals Goal Patient Associated Recent Progress Patient-Stat Aut hor Goal Type Problems ed? [facility] Yes Anna Pascual RN documented as of this encounter Visit Diagnoses Diagnosis Type 2 diabetes mellitus with diabetic polyneuropathy, without long-term current use of insulin (HCC) - Primary documented in this encounter Additional Health Concerns Noted Time Assessment 03/09/2021 1:46 PM CDT A fall risk assessment has been complet ed for the patient 09/30/2020 10:00 AM CDT PHQ-2 Depression Total Score: 1 documented as of this encounter Care Teams Start Date End Date Plate Corrector Relationship Specialty 12/24/14 Katie Simpson MD PCP - [address] [place] [address] 12/08/14 Katie Simpson MD [address] [place] [address] 04/01/15 Yamile Delgado MD [facility] [address] [facility] Medicine Ortho/Med Pavilion Lvl 1 [place] [address] 04/17/15 Devorah Strickland MD [facility] [address] [facility] Medicine Ortho/Med Pavilion Lvl [address] [place] [address] 04/24/15 Gabby Herman, RN Emergency Medicine 04/27/15 Kirsten Marrero, ERLIN Cardiovascul ar Disease 06/10/15 Waldemar Sandhu [facility] [address] [place] [address] 06/11/15 Diana Moore MD [facility] [address] [facility] logy Ortho/Med Pavilion Lvl [address] [place] [address] documented as of this encounter
--- OUTSIDE RECORDS SUMMARY | 2021-06-02 08:48 | XMS REPORT | Encounter Summary ---
Author Author [facility] Organization [facility] Address Unknown Phone Unavailable Care Team Providers Care Supervisor Sample Name Role Phone Katie Simpson MD Unavailable Katie Simpson MD PCP Yamile Delgado MD Unavailable Devorah Strickland MD Unavailable Gabby Herman RN Unavailable Unavailable Kirsten Marrero RN Unavailable Unavailable Waldemar Sandhu MD Unavailable [phone] Diana Moore MD Unavailable Encounter Details Care Team Description Date Type Department Bisi Petersen RN 04/15/2021 Documentation Cardiothoracic Surg lenny: [facility] [address] [facility], [address] [place] [address] Social History Date Tobacco Use Types Packs/Day [...] as of this encounter Progress Notes * Bisi Petersen, ERLIN - 04/15/2021 8:37 AM BOLOGNA LACER Letter and prior CT lung screening results mailed to patient regarding lung canc er screening appointment. Patient plans to follow closer to home and will not c ontinue with our program. Orders cancelled. Bisi Petersen RN GNA LACER documented in this encounter Plan of Treatment Not on filedocumented as of this encounter Goals Goal Patient Associated Recent Progress Patient-Stat Aut hor Goal Type Problems ed? [facility] Yes Anna Pascual RN documented as of this encounter Visit Diagnoses Not on filedocumented in this encounter Additional Health Concerns Noted Time Assessment 03/09/2021 1:46 PM CDT A fall risk assessment has been complet ed for the patient 09/30/2020 10:00 AM CDT PHQ-2 Depression Total Score: 1 documented as of this encounter Care Teams Start Date End Date Supervisor Sample Relationship Specialty 12/24/14 Katie Simpson MD PCP - General [address] [place] [address] 12/08/14 Katie Simpson MD [address] [place] [address] 04/01/15 Yamile Delgado MD [facility] [address] [facility] Medicine Ortho/Med Pavilion Lvl 1 [place] [address] 04/17/15 Devorah Strickland MD Family [address] [facility] Medicine Ortho/Med Pavilion Lvl 1 [place] [address] 04/24/15 Gabby Herman, RN Emergency Medicine 04/27/15 Kirsten Marrero, ERLIN Cardiovascul ar Disease 06/10/15 Waldemar Sandhu, Gastroentero MD [address] [place] [address] 06/11/15 Diana Moore MD [facility] [address] [facility] logy Ortho/Med Pavilion Lvl [address]B [place] [address] documented as of this encounter
--- OUTSIDE RECORDS SUMMARY | 2021-06-02 08:48 | XMS REPORT | Encounter Summary ---
Author Author [facility] Organization [facility] Address Unknown Phone Unavailable Care Team Providers Care Nailhead Puncher Name Role Phone Katie Simpson MD Unavailable Katie Simpson MD PCP Yamile Delgado MD Unavailable Devorah Strickland MD Unavailable Gabby Herman RN Unavailable Unavailable Kirsten Marrero RN Unavailable Unavailable Waldemar Sandhu MD Unavailable [phone] Diana Moore MD Unavailable Reason for Visit * Reason Comments Medication Refill Encounter Details Care Team Description Date Type Department Katie Simpson MD [address] [facility] [place] [address] 04/19/2021 Refill Family Medicine: [facility], Medical Pavilion [address] [facility] [facility] [address] 2, [address] [place] [address] Social History Date Tobacco Use [...] Patient-Stat Aut hor Goal Type Problems ed? [facility] Yes Anna Pascual RN documented as of this encounter Visit Diagnoses Not on filedocumented in this encounter Additional Health Concerns Noted Time Assessment 03/09/2021 1:46 PM CDT A fall risk assessment has been complet ed for the patient 09/30/2020 10:00 AM CDT PHQ-2 Depression Total Score: 1 documented as of this encounter Care Teams Start Date End Date Nailhead Puncher Relationship Specialty 12/24/14 Katie Simpson MD PCP - [address] [address] 12/08/14 Katie Simpson MD [address] [address] 04/01/15 Yamile Delgado MD [facility] [address] Medicine Ortho/Med Pavilion Lvl 1 [place] [address] 04/17/15 Devorah Strickland MD [facility] [address] [facility] Medicine Ortho/Med Pavilion Lvl 1 [place] [address] 04/24/15 Gabby Herman, RN Emergency Medicine 04/27/15 Kirsten Marrero, ERLIN Cardiovascul ar Disease 06/10/15 Waldemar Sandhu, Gastroentero logy [address] [place], [place] [id number] 06/11/15 Diana Moore MD [facility] [address] [facility] Ortho/Med Pavilion Lvl [address] [place], [place] [id number] documented as of this encounter
--- OUTSIDE RECORDS SUMMARY | 2021-06-02 08:48 | XMS REPORT | Encounter Summary ---
Author Author [facility] Organization [facility] Address Unknown Phone Unavailable Care Team Providers Care Grid Inspector Name Role Phone Katie Simpson MD Unavailable Katie Simpson MD PCP Yamile Delgado MD Unavailable Devorah Strickland MD Unavailable Gabby Herman RN Unavailable Unavailable Kirsten Marrero RN Unavailable Unavailable Waldemar Sandhu MD Unavailable [phone] Diana Moore MD Unavailable Reason for Visit * Reason Comments Medication Refill Encounter Details Care Team Description Date Type Department Katie Simpson MD [address] [facility] [place] [address] 04/19/2021 Refill Family Medicine: [facility], Medical Pavilion [address] [facility] [address], [address] [place] [address] Social History Date Tobacco Use [...] Date End Date Prescription Sig Dispensed Refills 04/19/2021 metFORMIN-XR (GLUCOPHAGE TAKE 2 120 tablet 0 XR) 500 mg extended TABLETS BY release tablet MOUTH TWICE DAILY documented in this encounter Miscellaneous Notes * Telephone Encounter - Tameka Quarles LPN - 04/19/2021 11:48 AM OUTSIDE SALES ADVERTISING EXECUTIVE KENZIE 09/30/[address] Simpson No upcoming appt IDE SALES ADVERTISING EXECUTIVE documented in this encounter Plan of Treatment Not on filedocumented as of this encounter Goals Goal Patient Associated Recent Progress Patient-Stat Aut hor Goal Type Problems ed? [facility] Yes Anna Pascual RN documented as of this encounter Visit Diagnoses Not on filedocumented in this encounter Discontinued Medications Start Date End Date Medication Sig Discontinue Reason 10/06/2020 04/19/2021 metFORMIN-XR (GLUCOPHAGE TAKE 2 XR) 500 mg extended TABLETS BY release tablet MOUTH TWICE DAILY documented as of this encounter Additional Health Concerns Noted Time Assessment 03/09/2021 1:46 PM CDT A fall risk assessment has been complet ed for the patient 09/30/2020 10:00 AM CDT PHQ-2 Depression Total Score: 1 documented as of this encounter Care Teams Start Date End Date Grid Inspector Relationship Specialty 12/24/14 Katie Simpson MD PCP - General Family [address] [place] [address] Medicine [place] [address] 12/08/14 Katie Simpson MD Family [address] [place] [address] 04/01/15 Yamile Delgado MD [facility] [address] [facility]Med Pavilion Lvl 1 [place] [address] 04/17/15 Devorah Strickland MD [facility] [address] [facility] Pav[facility] Lvl 1 [place] [address] 04/24/15 Gabby Herman, ERLIN Emergency Medicine 04/27/15 Kirsten Marrero, ERLIN Cardiovascul ar Disease 06/10/15 Waldemar Sandhu, Gastroentero logy [address] [place] [address] 06/11/15 Diana Moore MD [facility] [address] [facility]Med Pavilion Lvl [address]B [place] [address] documented as of this encounter
--- OUTSIDE RECORDS SUMMARY | 2021-06-02 08:48 | XMS REPORT | Encounter Summary ---
Author Author [facility] Address Unknown Phone Unavailable Care Team Providers Care Electrode Turner And Finisher Name Role Phone Katie Simpson MD Unavailable Katie Simpson MD PCP Yamile Delgado MD Unavailable Devorah Strickland MD Unavailable Gabby Herman RN Unavailable Unavailable Kirsten Marrero RN Unavailable Unavailable Waldemar Sandhu MD Unavailable [phone] Diana Moore MD Unavailable Reason for Visit * Reason Comments Medication Refill Encounter Details Care Team Description Date Type Department Dion Peñaloza MD [address] [facility] [address] [place] [address] Medication Refill 04/19/2021 Refill Cardiology: [facility] n Office [place] [address] [place] [address]. [address], [address] [place] [address] Social History Date Tobacco Use Types Packs/Day [...] Patient-Stat Aut hor Goal Type Problems ed? [facility] Yes Anna Pascual RN documented as of this encounter Visit Diagnoses Not on filedocumented in this encounter Additional Health Concerns Noted Time Assessment 03/09/2021 1:46 PM CDT A fall risk assessment has been complet ed for the patient 09/30/2020 10:00 AM CDT PHQ-2 Depression Total Score: 1 documented as of this encounter Care Teams Start Date End Date Electrode Turner And Finisher Relationship Specialty 12/24/14 Katie Simpson MD PCP - [address] [address] 12/08/14 Katie Simpson MD [address] [address] 04/01/15 Yamile Delgado MD [facility] [address] Medicine Ortho/Med Pavilion Lvl [address] [place] [address] 04/17/15 Devorah Strickland MD [facility] [address] [place] [facility] Medicine Ortho/Med Pavilion Lvl 1 [place] [address] 04/24/15 Gabby Herman, RN Emergency Medicine 04/27/15 Kirsten Marrero, ERLIN Cardiovascul ar Disease 06/10/15 Waldemar Sandhu, Gastroentero logy [address] [place], [place] [id number] 06/11/15 Diana Moore MD [facility] [address] [facility] Ortho/Med Pavilion Lvl [address] [place], [place] [id number] documented as of this encounter
--- OUTSIDE RECORDS SUMMARY | 2021-06-02 08:48 | XMS REPORT | Encounter Summary ---
Author Author [facility] Organization [facility] Address Unknown Phone Unavailable Care Team Providers Care Dovetailer Name Role Phone Katie Simpson MD Unavailable Katie Simpson MD PCP Yamile Delgado MD Unavailable Devorah Strickland MD Unavailable Gabby Herman RN Unavailable Unavailable Kirsten Marrero RN Unavailable Unavailable Waldemar Sandhu MD Unavailable [phone] Diana Moore MD Unavailable Reason for Visit * Reason Onset Date Comments Remote Monitoring 04/05/2021 to [facility] Transferred Encounter Details Care Team Description Date Type Department Hu Keith, ERLIN Remote Monitoring Transferred (to [facility]) 04/05/2021 Telephone Cardiology: [facility] [address] [facility], [address] [place] [address] Social History Date Tobacco Use [...] Date Recorded Male 10/02/2019 1:54 PM CDT Date Recorded COVID-19 Exposure Response 03/09/2021 1:39 PM CDT In the last month, have you been in contact with No / Unsure someone who was confirmed or suspected to have Coronavirus / COVID-19? documented as of this encounter Functional Status [...] encounter Miscellaneous Notes * Telephone Encounter - Hu Keith RN - 04/05/2021 1:09 PM SKI PATROL Received a request via [employer] website to transfer the patients remot e monitoring to [facility] ([phone]). Chart note from 04/02/21 indicates the patients has transferred CV care. Released the patien ts remote monitoring to their care. DB. PATROL documented in this encounter Plan of Treatment Not on filedocumented as of this encounter Goals Goal Patient Associated Recent Progress Patient-Stat Aut hor Goal Type Problems ed? [facility] Yes Anna Pascual RN documented as of this encounter Visit Diagnoses Not on filedocumented in this encounter Additional Health Concerns Noted Time Assessment 03/09/2021 1:46 PM CDT A fall risk assessment has been complet ed for the patient 09/30/2020 10:00 AM CDT PHQ-2 Depression Total Score: 1 documented as of this encounter Care Teams Start Date End Date Dovetailer Relationship Specialty 12/24/14 Katie Simpson MD PCP - General Family [address] [facility] Medicine [facility] [address] [place] [address] 12/08/14 Katie Simpson MD Family [address] [facility] Medicine [facility] [place] [address] 04/01/15 Yamile Delgado MD Family [address] [facility] Medicine Ortho/Med Pavilion Lvl 1 [place] [address] 04/17/15 Devorah Strickland MD Family [address] [facility] Medicine Ortho/Med Pavilion Lvl 1 [place] [address] 04/24/15 Gabby Herman, RN Emergency Medicine 04/27/15 Kirsten Marrero, ERLIN Cardiovascul ar Disease 06/10/15 Waldemar Sandhu, Gastroentero MD [address] [place] [address] 06/11/15 Diana Moore MD [facility] [address] [facility] logy Ortho/Med Pavilion Lvl [address]B [place] [address] documented as of this encounter
[2021-06-02 09:32] LABS: HEMOGLOBIN 14.3 g/dL (13.3-17.7); MEAN PLATELET VOLUME 13.4 fL (9.0-12.2); WHITE BLOOD COUNT 9.9 10^3/uL (4.3-11.0)
--- NOTE | 2021-06-02 09:32 | Diagnostic Imaging Report ---
INDICATION: Abnormal stress test, CHF, hypertension. EXAMINATION: Single view chest 06/02/2021 FINDINGS: Sternotomy wires noted with a left-sided pacemaker present. Heart is enlarged. Pulmonary vasculature normal. Lungs and pleural spaces clear. IMPRESSION: 1. No acute cardiopulmonary process. Dictated by: Dictated on workstation # [id number]
[2021-06-02 09:49] LABS: ALANINE AMINOTRANSFERASE 24 U/L (0-55); ALBUMIN 4.2 GM/DL (3.2-4.5); ALKALINE PHOSPHATASE 76 U/L (40-136); BILIRUBIN,TOTAL 0.4 MG/DL (0.1-1.0); BUN/CREATININE RATIO 23; CALCIUM 9.1 MG/DL (8.5-10.1); CARBON DIOXIDE 24 MMOL/L (21-32); CHLORIDE 102 MMOL/L (98-107); CHOLESTEROL 212 MG/DL (< 200); CREATININE SERUM 1.45 MG/DL (0.60-1.30); GFR ESTIMATED 49; GLUCOSE 260 MG/DL (70-105); HDL CHOLESTEROL 20 MG/DL (40-60); POTASSIUM 3.8 MMOL/L (3.6-5.0); SODIUM 139 MMOL/L (135-145); TRIGLYCERIDES 684 MG/DL (<150)
[2021-06-02 09:53] LABS: INR 1.1 (0.8-1.4); PROTHROMBIN TIME PATIENT 14.4 SEC (12.2-14.7)
[~2021-06-02 11:00] MED LIST changes: +ACET-2267 PO; +AMLO-251 PO; +ASPI-1238 PO; +ATOR40TA70 PO; -CATHETER FLUSH 10 ML SYR IV PRN; +FENO145T26 PO; +GABA300C PO; +GLIM4TAB5 PO; +HEParin (CATH LAB) 2,000 ML IV ONE; +INSU100I32 SQ; +LEVO200C2 PO; +LIDOCAINE 1% INJ 20 ML 20 ML VIAL ONE; +LOSA100T57 PO; +METF-478 PO; +NITR0.4T39 SL; +NS IV 1000 ML 0 ML ONE; +NS IV 1000 ML 1,000 ML IV SCH; -REGADENOSON 0.4 MG/5 ML SYR (LEXISCAN) IV ONE; +STL80T PO; +TORS20TA3 PO
[2021-06-02] MEDS ORDERED: MIDAZOLAM 5 MG/5 ML (VERSED) VIAL ONE (12:30)
[2021-06-02] MEDS ORDERED: fentaNYL INJ 100 MCG/2 ML AMP ONE (12:30)
[2021-06-02] MEDS ORDERED: NS IV 1000 ML 1,000 ML ONE (12:31)
--- NOTE | 2021-06-02 12:40 | Conscious Sedation/ASA ---
Conscious Sedation Pre-Proced Time 12:40 ASA Score 3 For ASA 3 and 4: Consider anesthesia and medical clearance. Also, for patients with a history of failed moderate sedation consider anesthesia. Airway Lungs Heart ASA score ASA 1: a normal healthy patient ASA 2: a patient with a mild systemic disease (mid diabetes, controlled hypertension, obesity x ASA 3: a patient with a severe systemic disease that limits activity (angina, COPD, prior Myocardial infarction) ASA 4: a patient with an incapacitating disease that is a constant threat to life (CHF, renal failure) ASA 5: a moribund patient not expected to survive 24 hrs. (ruptured aneurysm) ASA 6: a declared brain- patient whose organs are being harvested. For emergent operations, add the letter E after the classification Mallampati Classification Grade 3 Sedation Plan Analgesia, Amnesia, Plan communicated to team members, Discussed options with patient/fam, Discussed risks with patient/fam The patient is an appropriate candidate to undergo the planned procedure, sedation, and anesthesia. The patient immediately re-assessed prior to indication. MURTAZA QUEEN MD Jun 02, 2021 12:40
[2021-06-02] MEDS ORDERED: NS IV 1000 ML 1,000 ML IV SCH (13:30)
[2021-06-02] MEDS ORDERED: PATIENT MAY USE OWN MEDS, ALL PO SCH (13:30)
[2021-06-02] MEDS ORDERED: METF-478 PO (13:32)
--- NOTE | 2021-06-02 13:32 | Discharge Inst-Post CATH ---
Discharge Inst-CATH/EP Problems Reviewed?: Yes Post Cardiac Cath/EP D/C Inst Follow Up/Plan Hold Metformin for [address] Khoury's office in 2 to 4 weeks <b>CARDIAC CATH/EP PROCEDURE DISCHARGE INSTRUCTIONS</b> ACTIVITY * Go Home directly and rest. * Limit activity of the leg (or wrist if it was used) for 7 days including aerobics, swimming, jogging, bicycling, etc. * Restrict stair-climbing for 7 days if possible, if not, climb up with your non-cath leg, then bring together on the same step. * Avoid lifting, pushing, pulling or excessive movement of the affected extremity for 7 days. * Customary sexual activity may be resumed after 2 days-use caution not to use a position that strains or causes pain to the affected extremity. * No driving for 24 hours. * NO SMOKING. * Avoid straining for bowel movements for 7 days. * Gentle walking on level ground is allowed. * Returning to work will depend on the type of procedure and the results. Your doctor will discuss this with you. CALL YOUR DOCTOR FOR ANY OF THE FOLLOWING: *If bleeding from the puncture site occurs- Apply gentle pressure to site with clean cloth and call your doctor or EMS. * If a knot or lump forms under the skin, increases in size, or causes pain. * If bruising appears to be worsening or moving further down your leg instead of disappearing. * Temperature above 101 F. CARE OF YOUR GROIN INCISION; * Bruising or purple discoloration of the skin near the puncture site is common. * You may shower only, no bathtub bathing for 5 days. Be careful to avoid slipping as your leg may feel stiff. * If a closure device was used on your femoral artery, please see the attached guide regarding care of the device and your leg. * Leave dressing on FOR 24 hours. CARE OF YOUR WRIST INCISION; * Bruising or purple discoloration of the skin near the puncture site is common. * You may shower. * DO NOT submerge wrist. * Leave dressing on FOR 24 hours. MURTAZA KHOURY MD Jun 02, 2021 13:32
--- NOTE | 2021-06-02 13:36 | Cardiac Cath Report ---
Cardiac Cath Report Physician (s)/Web Offset Press Feeder (s) Physician MURTAZA QUEEN MD Pre-Procedure Diagnosis Pre-Procedure Diagnosis: Coronary artery disease Post-Procedure Note Procedure Start Date: Jun 02, 2021 Name of Procedure: Left heart catheterization Vein graft angiogram FERNANDO angiogram Findings/Procedure Note PROCEDURE NOTE: 65-year-old gentleman with history of coronary artery disease, CABG, multiple intervention in the past, had an abnormal stress test, scheduled for cardiac catheterization possible PTCA After explaining the procedure to the patient, all pros and cons were explained, all questions were answered. The patient signed the consent and then he was placed on the cardiac catheterization laboratory. Groin was prepped SL fashion local anesthesia was used. Sheath placed in the artery. Dl right and left catheter were used to access the coronary system.Vein Graft evaluated. FERNANDO evaluated. Dl right catheter prolapsed to the left ventricular cavity, pressure was measured, no left ventriculogram was done. At the end of the procedure the sheath was removed. Closure device was deployed FINDINGS: Hemodynamics LV 118/16, end-diastolic pressure of 16 Aorta 119/54 mean of 77 ANATOMY: Left Main is free of obstructive disease Left Anterior Descending is occluded at the ostium, FERNANDO to LAD is patent with good flow distally Left Circumflex is moderate in size, the first obtuse marginal branch has a stent appeared to be having chronic total occlusion, the proper circumflex artery and the left PDA are patent Right Coronary Artery is occluded proximally, the vein graft to the right coronary artery is occluded FERNANDO to LAD is patent Vein Graft evaluation showed all vein grafts are occluded, patient is known to have occluded vein graft to the right coronary artery and the obtuse marginal branch CONCLUSION: 1. Patent stent in the proximal and distal circumflex artery giving collaterals to the right 2. Occluded first obtuse marginal branch and vein graft to the obtuse marginal branch 3. Occluded ostial LAD with patent FERNANDO to the LAD filling the distal LAD properly 4. Occluded right coronary artery and vein graft to the right coronary artery getting collaterals from the circumflex system 5. Normal left ventricular end-diastolic pressure DISCUSSION AND RECOMMENDATION: Patient has extensive disease not amendable to intervention, medical therapy is recommended Anesthesia Type: Conscious Sedation Estimated blood loss (mL): 15 ml Contrast Amount: 17 ml Total Radiation Dose: 300 mGy Post-Procedure Diagnosis Post-operative diagnosis: Coronary artery disease Hypertension Hyperlipidemia Diabetes mellitus MURTAZA QUEEN MD Jun 02, 2021 13:36
== END 2021-06-02 17:30 | disposition home or self-care (01) ==
LOC: CATH 11:00 → SDC 13:40 → CATH 17:30
PROVIDERS: ATTEND Internal Medicine Cardiovascular Disease
DX: I25.10 Atherosclerotic heart disease of native coronary artery without angina pectoris (principal); I13.0 Hypertensive heart and chronic kidney disease with heart failure and stage 1 through stage 4 chronic kidney disease, or unspecified chronic kidney disease; I50.9 Heart failure, unspecified; E11.22 Type 2 diabetes mellitus with diabetic chronic kidney disease; N18.9 Chronic kidney disease, unspecified; E78.5 Hyperlipidemia, unspecified; I65.23 Occlusion and stenosis of bilateral carotid arteries; F17.210 Nicotine dependence, cigarettes, uncomplicated; Z79.82 Long term (current) use of aspirin; Z79.899 Other long term (current) drug therapy; Z79.84 Long term (current) use of oral hypoglycemic drugs; Z83.3 Family history of diabetes mellitus
CPT/HCPCS: 71045; 80053; 80061; 85027; 85610; 85730; 87081; 93459; C1760; C1894; 36415

== ENCOUNTER 2021-09-25 14:53 | Emergency (ER) | payer MEDICARE ==
[~2021-09-25] VITALS: Ht 193 cm; Wt 111.0 kg
[~2021-09-25 14:53] MED LIST changes: -HEParin (CATH LAB) 2,000 ML IV ONE; -LIDOCAINE 1% INJ 20 ML 20 ML VIAL ONE; -NS IV 1000 ML 0 ML ONE; -NS IV 1000 ML 1,000 ML IV SCH
--- NOTE | 2021-09-25 15:01 | ED General ---
General Stated Complaint: R LEG CRAMPING/CONCERNED ABOUT BLOOD CLOT Source of Information: Patient Exam Limitations: No Limitations History of Present Illness Date Seen by Provider: Sep 25, 2021 Time Seen by Provider: 14:56 Initial Comments This is a 66-year-old male who presented to the ER via POV with complaints of right calf pain right foot pain that is radiating up into his right thigh that stated at noon today. Reports history of severe peripheral artery disease with partial occlusion of "calf arteries". Pain today feels similar to prior episode when he had total occlusion of his right tibial artery. Describes as constant aching pain that is worse with walking. Currently rating 3-4/10 at rest. Takes a baby aspirin daily no other anticoagulants or antiplatelet medications. Denies any trauma, no fever, chills, cough, shortness of breath, chest pain, nausea, vomiting, abdominal pain, numbness, or tingling. Allergies and Home Medications Allergies Coded Allergies: Penicillins (Verified Allergy, Mild, Rash, 06/02/21) Patient Home Medication List Home Medication List Reviewed: Yes Acetaminophen (Tylenol Extra Strength) 500 Mg Tablet, 1,000 MG PO Q6H PRN for PAIN-MILD (1-4), (Reported) Entered as Reported by: BRAYAN GRESHAM on 06/02/21 1012 Amlodipine Besylate (Amlodipine Besylate) 10 Mg Tablet, 10 MG PO DAILY, (Reported) Entered as Reported by: BRAYAN GERSHAM on 06/02/21 1012 Aspirin (Aspirin EC) 81 Mg Tablet.dr, 81 MG PO DAILY, (Reported) Entered as Reported by: BRAYAN GRESHAM on 06/02/21 1012 Atorvastatin Calcium (Atorvastatin Calcium) 40 Mg Tablet, 40 MG PO HS, (Reported) Entered as Reported by: BRAYAN GRESHAM on 06/02/21 1012 Fenofibrate Nanocrystallized (Fenofibrate) 145 Mg Tablet, 145 MG PO DAILY, (Reported) Entered as Reported by: BRAYAN GRESHAM on 06/02/21 1012 Gabapentin (Neurontin) 300 Mg Capsule, 900 MG PO HS, (Reported) Entered as Reported by: BRAYAN GRESHAM on 06/02/21 1016 Glimepiride (Glimepiride) 4 Mg Tablet, 8 MG PO DAILY, (Reported) Entered as Reported by: BRAYAN GRESHAM on 06/02/21 1012 Insulin Degludec (Tresiba Flextouch U-100) 100 Unit/1 Ml Insuln.pen, 18 UNIT SQ HS, (Reported) Entered as Reported by: BRAYAN GRESHAM on 06/02/21 1012 Levothyroxine Sodium (Levothyroxine) 200 Mcg Capsule, 200 MCG PO DAILY, (Reported) Entered as Reported by: BRAYAN GRESHAM on 06/02/21 1012 Losartan Potassium (Losartan Potassium) 100 Mg Tablet, 100 MG PO DAILY, (Reported) Entered as Reported by: BRAYAN GRESHAM on 06/02/21 1012 Metformin HCl (Metformin HCl ER) 500 Mg Tab.er.24, 1,000 MG PO BID Prescribed by: MURTAZA KHOURY on 06/02/21 1332 Nitroglycerin (Nitroglycerin) 0.4 Mg Tab.subl, 0.4 MG SL UD PRN for CHEST PAIN, (Reported) Entered as Reported by: BRAYAN GRESHAM on 06/02/21 1012 Sotalol HCl (Sotalol) 80 Mg Tablet, 80 MG PO BID, (Reported) Entered as Reported by: BRAYAN GRESHAM on 06/02/21 101 Torsemide (Torsemide) 20 Mg Tablet, 20 MG PO DAILY, (Reported) Entered as Reported by: BRAYAN GRESHAM on 06/02/21 1012 Review of Systems Review of Systems Constitutional: no symptoms reported EENTM: no symptoms reported Respiratory: no symptoms reported Cardiovascular: no symptoms reported Gastrointestinal: no symptoms reported Genitourinary: no symptoms reported Musculoskeletal: no symptoms reported Skin: no symptoms reported Psychiatric/Neurological: No Symptoms Reported Hematologic/Lymphatic: No Symptoms Reported Immunological/Allergic: no symptoms reported Past [id number]-Hxxzzw Hx Past Medical History CABG, Coronary Stent, Gallbladder, Tonsillectomy Sleep Apnea Currently Using CPAP: No Atrial Fibrillation, Coronary Artery Disease, High Cholesterol, Hypertension TIA Physical Exam Vital Signs Vital Signs - First Documented 09/25/21 14:55 Temp 36.1 Pulse 81 Resp 18 B/P (MAP) 142/82 (102) Pulse Ox 98 Capillary Refill : Height, Weight, BMI Height: '" Weight: lbs. oz. kg; 30.04 BMI Method: General Appearance: No Apparent Distress, WD/WN Eyes: Bilateral Eye Normal Inspection, Bilateral Eye PERRL, Bilateral Eye EOMI HEENT: PERRL/EOMI, Normal ENT Inspection, Pharynx Normal Neck: Full Range of Motion, Normal Inspection, Non Tender, Supple Respiratory: Lungs Clear, Normal Breath Sounds, No Accessory Muscle Use, No Respiratory Distress Cardiovascular: Regular Rate, Rhythm, Normal Peripheral Pulses (LLE), Other (pulses 2+ regular LLE, unable to palpate or doppler pedal or posterior tibial pulses of RLE. ) Gastrointestinal: Normal Bowel Sounds, Non Tender, Soft Extremity: Normal Capillary Refill (LLE), Normal Inspection (LLE), Normal Range of Motion (LLE), No Pedal Edema, Calf Tenderness (RLE), Slow Capillary Refill (RLE), Other (amputation of right great toe. ) Neurologic/Psychiatric: Alert, Oriented x3, No Motor/Sensory Deficits, Normal Mood/Affect, animal stunner II-XII Norm as Tested Skin: Normal Color, Warm/Dry, Other (RLE: dusky, warm, cap refill 3 seconds ) Progress/Results/Core Measures Suspected Sepsis SIRS Temperature: Pulse: Respiratory Rate: Laboratory Tests 09/25/21 16:19: White Blood Count 11.8H Blood Pressure / Mean: Laboratory Tests 09/25/21 16:19: Creatinine 2.00H, INR Comment 1.0, Platelet Count 201, Total Bilirubin 0.3 Results/Orders Lab Results Laboratory Tests Test 09/25/21 16:19 Range/Units White Blood Count 11.8 H 4.3-11.0 10^3/uL Red Blood Count 4.52 4.30-5.52 10^6/uL Hemoglobin 13.2 L 13.3-17.7 g/dL Hematocrit 40 40-54 % Mean Corpuscular Volume 89 80-99 fL Mean Corpuscular Hemoglobin 29 25-34 pg Mean Corpuscular Hemoglobin Concent 33 32-36 g/dL Red Cell Distribution Width 14.0 10.0-14.5 % Platelet Count 201 130-400 10^3/uL Mean Platelet Volume 13.4 H 9.0-12.2 fL Immature Granulocyte % (Auto) 0 % Neutrophils (%) (Auto) 70 42-75 % Lymphocytes (%) (Auto) 21 12-44 % Monocytes (%) (Auto) 6 0-12 % Eosinophils (%) (Auto) 2 0-10 % Basophils (%) (Auto) 1 0-10 % Neutrophils # (Auto) 8.3 H 1.8-7.8 10^3/uL Lymphocytes # (Auto) 2.4 1.0-4.0 10^3/uL Monocytes # (Auto) 0.8 0.0-1.0 10^3/uL Eosinophils # (Auto) 0.2 0.0-0.3 10^3/uL Basophils # (Auto) 0.1 0.0-0.1 10^3/uL Immature Granulocyte # (Auto) 0.0 0.0-0.1 10^3/uL Percent Immature Platelet Fraction 14.4 H 0.0-7.6 % Prothrombin Time 14.0 12.2-14.7 SEC INR Comment 1.0 0.8-1.4 Activated Partial Thromboplast Time 26 24-35 SEC D-Dimer 1.05 H 0.00-0.49 UG/ML Sodium Level 138 135-145 MMOL/L Potassium Level 4.6 3.6-5.0 MMOL/L Chloride Level 102 98-107 MMOL/L Carbon Dioxide Level 19 L 21-32 MMOL/L Anion Gap 17 H 5-14 MMOL/L Blood Urea Nitrogen 31 H 7-18 MG/DL Creatinine 2.00 H 0.60-1.30 MG/DL Estimat Glomerular Filtration Rate 36 BUN/Creatinine Ratio 16 Glucose Level 233 H 70-105 MG/DL Calcium Level 9.3 8.5-10.1 MG/DL Corrected Calcium 9.2 8.5-10.1 MG/DL Total Bilirubin 0.3 0.1-1.0 MG/DL Aspartate Amino Transf (AST/SGOT) 21 5-34 U/L Alanine Aminotransferase (ALT/SGPT) 24 0-55 U/L Alkaline Phosphatase 68 40-136 U/L Total Protein 7.5 6.4-8.2 GM/DL Albumin 4.1 3.2-4.5 GM/DL My Orders Orders - LEANNE KINSEY APRN Fibrin Degradation Products (09/25/21 14:57) Us Right Low Ext [id number] (09/25/21 15:19) Cbc With Automated Diff (09/25/21 17:36) Comprehensive Metabolic Panel (09/25/21 17:36) Partial Thromboplastin Time (09/25/21 17:36) Protime With Inr (09/25/21 17:36) Nitroglycerin Ointment (Nitrobid Ointme (09/25/21 17:45) Heparin (Bolus Per Protocol) (Heparin (B (09/25/21 17:45) Heparin Drip [id number] Unit/500ml (Heparin (09/25/21 17:45) Ed Iv/Invasive Line Start (09/25/21 17:39) Ekg Tracing (09/25/21 18:04) Medications Given in ED Current Medications Medications Dose Ordered Sig/Brionna Route Start Time Stop Time Status Last Admin Dose Admin Heparin Sodium/ Dextrose 500 ml @ 0 mls/hr Q0M ONCE IV 09/25/21 17:45 09/25/21 17:46 DC 09/25/21 18:03 18 MLS/HR Nitroglycerin 1 inch ONCE ONCE TOP 09/25/21 17:45 09/25/21 17:46 DC 09/25/21 18:02 1 INCH Vital Signs/I&O 09/25/21 09/25/21 14:55 18:37 Temp 36.1 36.2 Pulse 81 66 Resp 18 12 B/P (MAP) 142/82 (102) 134/84 Pulse Ox 98 99 Capillary Refill : Progress Note : Progress Note Reviewed last cardiology report from 06/02/2021. June 27, 2019 peripheral angiogram shows 30 to 40% stenosis in the proximal left common iliac artery with mild diffuse disease in the right external iliac artery, moderate diffuse disease in the lower right SFA with total occlusion at the level of the mid SFA reconstruction at the level of the distal SFA via collateral from its lateral profunda artery. Total occlusion of the right balloon angioplasty with drug- coated balloon at the mid distal superficial right femoral artery. Called radiology and requested ultrasound to come in for arterial ultrasound of right lower extremity. Noted to have elevated D-dimer 1.05 and arterial US of RLE shows occlusion of right femoral artery with no visualization of the right dorsalis pedis artery. Nitro paste applied to foot. Orders placed for labs and PTT, will initiate Heparin drip. Discussed case with cardiovascular surgeon at [place] Dr. Kellogg , accepted patient transfer. Reviewed plan of care with patient and family and he is agreeable to transfer. ECG Initial ECG Impression Date: Sep 25, 2021 Initial ECG Impression Time: 18:20 Initial ECG Rate: 70 Initial ECG Rhythm: Normal Sinus Initial ECG Impression: Nonspecific Changes Initial ECG Comparisson: No Previous ECG Available Diagnostic Imaging Diagonstic Imaging: Ultrasound Comments [facility] [place] [place] NAME: [facility] REC#: [id number] PT STATUS: REG ER : 1955 PHYSICIAN: LEANNE KINSEY ASSEMBLER BONDING ADMIT DATE: 09/25/21/ER Signed Date of Exam:09/25/21 US RIGHT LOW EXT [id number] TECHNIQUE: Live grayscale and color Doppler ultrasound was performed of the right lower extremity arterial system. REASON FOR EXAM: Right leg pain. COMPARISON: None. FINDINGS: Normal triphasic waveforms are seen in the right common femoral and profunda femoris arteries. Elevated flow velocities are seen in the right common femoral artery of 198 cm/s. Biphasic waveforms are visualized in the proximal right superficial femoral artery with diminutive peak systolic velocity of 43 cm/s. There is occlusion of the mid and distal right superficial femoral artery with reconstitution of flow within the popliteal artery. The popliteal artery on the right demonstrates monophasic waveforms with diminished peak systolic velocity of 14 cm/s. Monophasic waveforms are seen in the right anterior and posterior tibial arteries with diminished peak systolic velocities. The right dorsalis pedis artery is not visualized. IMPRESSION: 1. Occlusion of the mid and distal right superficial femoral artery with diminished peak systolic velocities and monophasic waveforms in the calf vessels of the right lower extremity. The right dorsalis pedis artery is not visualized. 2. Biphasic waveforms in the proximal right superficial femoral artery with diminished peak systolic velocities. Dictated by: Dictated on workstation # [id number] Dict: 09/25/21 170 Trans: 09/25/21 172 [facility] [id number] Interpreted by: DOLORES NUNEZ DO Electronically signed by: DOLORES NUNEZ DO 09/25/211721 Reviewed: Reviewed by Me Departure Communication (Admissions) Time/Spoke to Consulting Phy: 17:[address] Khoury with cardiology, recommends patient be transferred to cardiovascular surgeon at [facility] for acute femoral artery occlusion. Impression Primary Impression: Femoral artery occlusion, right Additional Impression: Ischemic leg Disposition: XF SHT-TRM HOSP Condition: Stable Transfer Transfer Reason: Exceeds level of care Time Spoke to Accepting Phy: 17:48 Transfer Progress Notes 1748: Dr. Kellogg with cardiovascular surgery accepted patient for transfer of ischemic limb. 1804: [facility] accepted transfer of care at this time. Transfer Time: 18:08 Transfer Facility: [facility] room 283-2 Method of Transfer: EMS Departure-Patient Inst. Referrals: NO,LOCAL PHYSICIAN (PCP/Family) Primary Care Physician Copy Copies To 1: MURTAZA KHOURY MD, STORMY D ASSEMBLER BONDING Sep 25, 2021 15:01
--- NOTE | 2021-09-25 17:24 | Diagnostic Imaging Report ---
TECHNIQUE: Live grayscale and color Doppler ultrasound was performed of the right lower extremity arterial system. REASON FOR EXAM: Right leg pain. COMPARISON: None. FINDINGS: Normal triphasic waveforms are seen in the right common femoral and profunda femoris arteries. Elevated flow velocities are seen in the right common femoral artery of 198 cm/s. Biphasic waveforms are visualized in the proximal right superficial femoral artery with diminutive peak systolic velocity of 43 cm/s. There is occlusion of the mid and distal right superficial femoral artery with reconstitution of flow within the popliteal artery. The popliteal artery on the right demonstrates monophasic waveforms with diminished peak systolic velocity of 14 cm/s. Monophasic waveforms are seen in the right anterior and posterior tibial arteries with diminished peak systolic velocities. The right dorsalis pedis artery is not visualized. IMPRESSION: 1. Occlusion of the mid and distal right superficial femoral artery with diminished peak systolic velocities and monophasic waveforms in the calf vessels of the right lower extremity. The right dorsalis pedis artery is not visualized. 2. Biphasic waveforms in the proximal right superficial femoral artery with diminished peak systolic velocities. Dictated by: Dictated on workstation # [id number]
[2021-09-25] MEDS ORDERED: HEParin 1000 UNIT/ML (10ML VIAL) FOR BOLUS IV SCH (17:45)
[2021-09-25] MEDS ORDERED: HEParin DRIP 25000 UNIT/500ML 500 ML IV ONE (17:45)
[2021-09-25] MEDS ORDERED: NITROGLYCERIN 2% OINT 1 GM UNIT DOSE PACKET TOP ONE (17:45)
[2021-09-25 17:48] LABS: ALBUMIN 4.1 GM/DL (3.2-4.5); HEMOGLOBIN 13.2 g/dL (13.3-17.7); LYMPHOCYTES % (AUTO) 21 % (12-44); POTASSIUM 4.6 MMOL/L (3.6-5.0)
[2021-09-25 17:49] LABS: CALCIUM 9.3 MG/DL (8.5-10.1)
[2021-09-25 17:50] LABS: BASOPHILS # (AUTO) 0.1 10^3/uL (0.0-0.1); BASOPHILS % (AUTO) 1 % (0-10); EOSINOPHILS # (AUTO) 0.2 10^3/uL (0.0-0.3); EOSINOPHILS % (AUTO) 2 % (0-10); HEMATOCRIT 40 % (40-54); LYMPHOCYTES # (AUTO) 2.4 10^3/uL (1.0-4.0); MEAN CORPUSCULAR HEMOGLOBIN 29 pg (25-34); MEAN CORPUSCULAR HGB CONC 33 g/dL (32-36); MEAN CORPUSCULAR VOLUME 89 fL (80-99); MEAN PLATELET VOLUME 13.4 fL (9.0-12.2); MONOCYTES # (AUTO) 0.8 10^3/uL (0.0-1.0); MONOCYTES % (AUTO) 6 % (0-12); NEUTROPHILS # (AUTO) 8.3 10^3/uL (1.8-7.8); NEUTROPHILS % (AUTO) 70 % (42-75); PLATELET COUNT 201 10^3/uL (130-400); TOTAL PROTEIN 7.5 GM/DL (6.4-8.2); WHITE BLOOD COUNT 11.8 10^3/uL (4.3-11.0)
[2021-09-25 17:52] LABS: BILIRUBIN,TOTAL 0.3 MG/DL (0.1-1.0)
[2021-09-25 20:21] VITALS: BP 120/75
== END 2021-09-25 20:21 | disposition short-term general hospital (02) ==
LOC: EDUNIT# 14:53 → ER 14:55
DX: I70.291 Other atherosclerosis of native arteries of extremities, right leg (principal); I77.1 Stricture of artery; I70.221 Atherosclerosis of native arteries of extremities with rest pain, right leg; Z79.82 Long term (current) use of aspirin
CPT/HCPCS: 36415; 80053; 85025; 85379; 85610; 85730; 93005; 93926

== ENCOUNTER → 2022-05-06 | Outpatient (CLI) | payer MEDICARE | LOC: CARD 07:56 | PROVIDERS: ATTEND Physician Assistant | DX: I10 Essential (primary) hypertension (principal) | CPT/HCPCS: 93306 ==

== ENCOUNTER → 2022-08-18 | Outpatient (CLI) | payer MEDICARE | LOC: RAD 08:08 | PROVIDERS: ATTEND Podiatrist Foot & Ankle Surgery | DX: M00.9 Pyogenic arthritis, unspecified (principal); Z53.9 Procedure and treatment not carried out, unspecified reason ==

== ENCOUNTER → 2022-09-05 | Outpatient (CLI) | payer MEDICARE ==
--- NOTE | 2022-09-05 13:31 | Diagnostic Imaging Report ---
INDICATION: Arrhythmia. EXAMINATION: Portable chest at 1:32 PM. FINDINGS: There are postop changes from median sternotomy. There is a dual-chamber pacemaker. The heart size and pulmonary vascularity are normal. The lungs are clear. There are no effusions or pneumothoraces. IMPRESSION: No acute abnormalities in the chest. Dictated by: Dictated on workstation # [id number]
--- NOTE | 2022-09-05 14:40 | Diagnostic Imaging Report ---
Right ankle at 1404 hours. Indication: Foreign body check 3 views were obtained. There are no prior studies available for comparison. There are 2 roughly 2 cm cylindrical metallic foreign bodies embedded in the talar neck. The nature of these metallic foreign bodies is unclear. No other radiopaque foreign bodies identified. There is no fracture or acute bony abnormality appreciated. The ankle mortise is not widened and the talar dome is smooth. The soft tissues are unremarkable. Impression: 1. There are 2 linear cylindrical metallic foreign bodies in the talar neck. There is no acute bony abnormality appreciated however. 2. These results were discussed with Dr. Delvalle. Dictated by: Dictated on workstation # [id number]
== END ==
LOC: RAD 12:58
DX: I49.9 Cardiac arrhythmia, unspecified (principal); Z18.9 Retained foreign body fragments, unspecified material
CPT/HCPCS: 71045; 73610

== ENCOUNTER 2022-10-12 05:30 | Outpatient (CLI) | payer MEDICARE ==
[~2022-10-12] VITALS: Ht 193 cm; Wt 113.6 kg
[2022-10-13] MEDS ORDERED: CLOP75TA28 PO (09:01)
[2022-10-13] MEDS ORDERED: PARO20TA5 PO (09:01)
[2022-10-13] MEDS ORDERED: PAMI30VI8 SQ (09:01)
[2022-10-13] MEDS ORDERED: DAPA5TAB PO (09:01)
[2022-10-13] MEDS ORDERED: DOXY-227 PO (09:01)
[2022-10-13] MEDS ORDERED: MECO10005 PO (09:01)
[2022-10-13] MEDS ORDERED: RIVA2.5T5 PO (09:01)
[2022-10-13] MEDS ORDERED: INSU100V SQ (09:01)
== END 2022-10-13 09:37 ==
LOC: PREOP 05:30
PROVIDERS: ATTEND Podiatrist Foot & Ankle Surgery
DX: Z01.818 Encounter for other preprocedural examination (principal)

== ENCOUNTER → 2022-10-13 | Outpatient (CLI) | payer MEDICARE ==
[~2022-10-13] MED LIST changes: +ACHD5005 PO; +CATHETER FLUSH 10 ML SYR IVP PRN; +CLIN150C2 PO; +CLOP75TA28 PO; +DAPA5TAB PO; +DOXY-227 PO; +INSU100V SQ; +MECO10005 PO; +PAMI30VI8 SQ; +PARO20TA5 PO; +RIVA2.5T5 PO
--- NOTE | 2022-10-13 17:13 | Diagnostic Imaging Report ---
BONE SCAN 3 PHASE INDICATION: Chronic right foot ulcer. COMPARISON: None available. TECHNIQUE: Three-phase scintigraphic imaging of the bilateral feet was performed after the intravenous administration of 26.9 mCi of technetium 99m medronate. FINDINGS: There is abnormal increased blood flow and blood pool activity involving the right great toe. Additionally, there is abnormal radiotracer uptake on delayed phase imaging within the head of the right 1st metatarsal and base of the proximal phalanx. IMPRESSION: Scintigraphic features favor osteomyelitis and/or septic arthritis at the level of the right 1st MTP. Dictated by: Dictated on workstation # [id number]
== END ==
LOC: CARD 11:14
PROVIDERS: ATTEND Podiatrist Foot & Ankle Surgery
DX: L97.519 Non-pressure chronic ulcer of other part of right foot with unspecified severity (principal)
CPT/HCPCS: 78315; A9503

== ENCOUNTER 2022-10-17 06:45 | Day surgery (SDC) | payer MEDICARE ==
[~2022-10-17] VITALS: Ht 193 cm; Wt 113.6 kg
[2022-10-17] VITALS (9 sets, daily range): BP systolic 122–138; BP diastolic 59–80
[~2022-10-17 06:45] MED LIST changes: -ACHD5005 PO; -CATHETER FLUSH 10 ML SYR IVP PRN; -CLIN150C2 PO
[2022-10-17] MEDS ORDERED: VANCOMYCIN INJECTION 1,000 MG in NS (IVPB) 250 ML IV ONE (07:15)
[2022-10-17] MEDS ORDERED: LACTATED RINGERS 1,000 ML IV PRN (07:15)
[2022-10-17] MEDS ORDERED: LIDOCAINE 1% INJ 20 ML VIAL ONE ×2 (08:44→09:10)
[2022-10-17] MEDS ORDERED: BUPIVACAINE 0.5% 30 ML (SENSORCAINE) VIAL ONE (08:45)
[2022-10-17] MEDS ORDERED: ONDANSETRON 4 MG/2 ML (SDV) Z0FRAN ONE (08:48)
[2022-10-17] MEDS ORDERED: LIDOCAINE PF 2% 5 ML (XYLOCAINE) VIAL ONE (08:48)
[2022-10-17] MEDS ORDERED: proPOfol 200 MG/20 ML (DIPRIVAN) VIAL IV ONE (08:48)
[2022-10-17] MEDS ORDERED: fentaNYL INJ 100 MCG/2 ML AMP ONE (08:49)
[2022-10-17] MEDS ORDERED: BUP/EPI 0.5% 1:200,000 (SENSORCAINE) 30 ML VIAL ONE (09:10)
--- NOTE | 2022-10-17 09:14 | Progress Note-Pre Operative ---
Pre-Operative Progress Note Date of Available H&P: October 17, 2022 Date H&P Reviewed: October 17, 2022 Time H&P Reviewed: 09:13 Pre-Operative Diagnosis: Osteomyelitis right 1st metatatarsal and hallux proximal phalanx HIMANSHU NOVA DPVicenta October 17, 2022 09:14
[2022-10-17] MEDS ORDERED: morphine INJ 10 MG/ML 1ML (SYR OR VIAL) ONE (09:34)
[2022-10-17] MEDS ORDERED: SEVOFLURANE (ULTANE) 15 ML INHAL SOLN ONE (10:34)
--- NOTE | 2022-10-17 10:41 | Progress Note-Post Operative ---
Post-Operative Progess Note Surgeon (s)/Web Site Specialist (s) Surgeon HIMANSHU NOVA DPM Web Site Specialist: none Pre-Operative Diagnosis Osteomyelitis right 1st metatatarsal and hallux proximal phalanx Post-Operative Diagnosis same Procedure & Operative Findings Date of Procedure 10/17/22 Procedure Performed/Findings Amputation of right 1st metatarsal head and hallux proximal phalanx Anesthesia Type General Estimated Blood Loss Estimated blood loss (mL): Minimal Specimens/Packing Specimens Removed 1) right 1st metatarsal head and proximal phalanx 2) right 2nd metatarsal head Packing: Soto drain HIMANSHU NOVA DPM October 17, 2022 10:41
--- NOTE | 2022-10-17 10:43 | Anesthesia-General Post-Op ---
General Patient Condition Mental Status/LOC: Same as Preop Cardiovascular: Satisfactory Nausea/Vomiting: Absent Respiratory: Satisfactory Pain: Controlled Complications: Absent Post Op Complications Complications None Follow Up Care/Instructions Patient Instructions None needed. Anesthesia/Patient Condition Patient Condition Patient is doing well, no complaints, stable vital signs, no apparent adverse anesthesia problems. No complications reported per nursing. TAMARA BARGER CRNA October 17, 2022 10:43
[2022-10-17] MEDS ORDERED: HYDROcodone/APAP 5 MG/325 MG (LORTAB) TAB PO PRN (10:45)
[2022-10-17] MEDS ORDERED: LACTATED RINGERS 1,000 ML IV SCH (10:45)
[2022-10-17] MEDS ORDERED: ACHD5005 PO (10:48)
[2022-10-17] MEDS ORDERED: CLIN150C2 PO (10:48)
--- NOTE | 2022-10-17 11:41 | Physical Therapy Ortho Eval ---
PT Orthopedic Evaluation Type of Surgery Osteomyelitis right 1st metatatarsal and hallux proximal phalanx Prior Level of Function Current Living Status: Spouse Locomotion (Upon Admit): Independent Established Durable Medical Eq: Front Wheeled Walker (and stand up FWW) Subjective Entry Into Home: Stairs Without Railing Steps Into Home: 1 Motor Control Motor Control: Motor Control WNL ROM ROM: WFL, except focal deficit Strength Strength: WFL Transfer SCALE: Activities may be completed with or without assistive devices. 6-Wkdoggaesk-qipyddi completes the activity by him/herself with no assistance from a helper. 5-Set-up or Clean-up Assistance-helper sets up or cleans up; patient completes activity. [place] assists only prior to or following the activity. 4-Supervision or Touching Assistance-helper provides verbal cues and/or touch ing/steadying and/or contact guard assistance as patient completes activity. Assistance may be provided throughout the activity or intermittently. 3-Partial/Moderate Assistance-helper does LESS THAN HALF the effort. [place] lifts, holds or supports trunk or limbs, but provides less than half the effort. 2-Substantial/Maximal Assistance-helper does MORE THAN HALF the effort. [place] lifts or holds trunk or limbs and provides more than half the effort. 1-Sojtquzvy-iestpf does ALL the effort. Patient does none of the effort to complete the activity. Or, the assistance of 2 or more helpers is required for the patient to complete the activity. If activity was not attempted, code reason: 7-Patient Refused. 9-Not Applicable-not attempted and the patient did not perform the activity before the current illness, exacerbation or injury. 10-Not Attempted due to Environmental Limitations-(lack of equipment, weather restraints, etc.). 88-Not Attempted due to Medical Conditions or Safety Concerns. Transfers (B, C, W/C) (QC): 6 Gait Gait Assistive Device: FWW Right Lower Extremity: Right Weight Bearing Status RLE: Partial Weight Bearing Left Lower Extremity: Left Weight Bearing Status LLE: Partial Weight Bearing Other Weight Bearing Inst.: Heel contact for the right foot Gait (QC): 5 Distance: 150' Summary/Comments able to maintain PWB right foot Treatment Rendered Treatment: Gait Train Assessment/Goals Goal Time Frame: 1 Visit Safe Ambulation: Yes Plan Treatment Plan: Discharge, Education, Gait Treatment Duration: eval only PT/Family Agrees to Plan: Yes Time Time In: 1126 Time Out: 1136 Total Billed Treatment Time: 10 Billed Treatment Time 1 visit EVLowC 10 min AGNES PERALTA PT October 17, 2022 11:41
--- NOTE | 2022-10-17 18:16 | Diagnostic Imaging Report ---
INDICATION: Postop. FINDINGS: Hardware transfixing the anterior talocalcaneal articulation. There is amputation of the proximal distal phalanx of the 1st toe. There appears to be an underlying surgical drain, plantar and medially about the operative bed. IMPRESSION: Postsurgical changes, as described. Dictated by: Dictated on workstation # [id number]
--- NOTE | 2022-10-17 21:22 | OPERATIVE REPORT ---
DATE OF SERVICE: 10/17/2022 SURGEON: Janeth Mosley DPM. PREOPERATIVE DIAGNOSIS: Osteomyelitis, right first metatarsal head and proximal phalanx. POSTOPERATIVE DIAGNOSIS: Osteomyelitis, right first metatarsal head and proximal phalanx. PROCEDURES PERFORMED: Amputation of the right first metatarsal head sesamoids and proximal phalanx of the right hallux. WOUND CLASS: Contaminated. ANESTHESIA: General. HEMOSTASIS: Pneumatic thigh tourniquet at 250 mmHg. INDICATIONS: This 67-year-old male presents with a chronic wound to the right first metatarsal head area with tracking down to bone. Bone scan indicated osteomyelitis of the first metatarsal head and proximal phalanx. Conservative therapy is met with unsatisfactory results and the patient is agreeable to surgical intervention after risks and complications were discussed at length. No guarantees were extended to the patient and he is willing to proceed. DESCRIPTION OF PROCEDURE: The patient was brought back to the operating table and placed in secure supine position. A general anesthetic was then induced. Appropriate timeout was performed. Pneumatic thigh tourniquet was placed on the right lower extremity over several layers of padding. The right foot was prepped and draped in normal sterile manner. The right foot was then elevated, allowed to exsanguinate after which the tourniquet was inflated to 250 mmHg. Attention was then directed to the right first ray where there is already a partial amputation of the right hallux. There are 2 ulcerations that extended down to bone, one plantar, one medial to the first metatarsal head. A racquet-type incision was created with the stem medial and proximal extending distally, encapsulating the 2 ulceration sites and met at the first webspace. The circumscribed skin was removed in toto. Dissection was carried out to bone and the proximal phalanx and sesamoids were removed. A sample of the medial sesamoid was sent for cultures and sensitivity. The remainder was sent for pathological review. Next, there is a soft spot associated with the proximal medial aspect of the right first metatarsal head and it was then decided that the metatarsal head would also be resected. Utilizing a power sagittal saw, a cut from dorsal distal to plantar proximal with a small bias from distal lateral to proximal medial was created. This resected the first metatarsal head, but also provided for hopefully ambulatory surface that did not have any pressure points for the patient once he is healed. The first metatarsal head and specimen was sent for gross and microscopic evaluation. The remainder of the wound was inspected. There was found to be some suspicious area to the medial aspect of the right second metatarsal head. Utilizing a power sagittal saw, this was resected. Only a shave, proximally a few millimeters was removed. The underlying area looked to be clean without any pathology. There is some tendons that were also yellow and fibrous in nature compared to normal tendon. These 2 were resected as proximally as possible. Power irrigation was then performed with 3 liters of normal saline. A swab culture was then taken of the wound prior to closure. The tourniquet was released and active bleeders were cauterized. Viable skin color was noted to the dorsal and plantar flaps. Closure was then performed. The skin edges came together nicely without any excessive tension. A Logan drain quarter-inch was introduced through the proximal incision and the skin was sutured with simple interrupted type stitch with 4-0 Prolene. The wound was then dressed with Betadine-soaked Adaptic, sterile 4 x 4s, ABDs, and Kerlix as well as a Coban wrap. The patient is to continue with her oral antibiotic, which is going to be clindamycin as well as Vicodin for pain. He is to be nonweightbearing as possible on the right lower extremity; however, with the size, he is likely to use a heel contact. We will see the patient back in the office in 3 days period of time for drain removal. Job ID: [id number] DocumentID: [id number] Dictated Date: 10/17/2022 10:55:54 [employer] Machine Tender Date: 10/17/2022 21:20:00 Dictated By: QUYNH CASTAÑEDA
== END 2022-10-17 12:15 | disposition home or self-care (01) ==
LOC: SDC 06:45
PROVIDERS: ATTEND Podiatrist Foot & Ankle Surgery
DX: E11.69 Type 2 diabetes mellitus with other specified complication (principal); M86.671 Other chronic osteomyelitis, right ankle and foot; L97.513 Non-pressure chronic ulcer of other part of right foot with necrosis of muscle; L92.8 Other granulomatous disorders of the skin and subcutaneous tissue; E66.9 Obesity, unspecified; E03.9 Hypothyroidism, unspecified; G47.33 Obstructive sleep apnea (adult) (pediatric); Z68.30 Body mass index [BMI] 30.0-30.9, adult; Z87.891 Personal history of nicotine dependence; Z79.84 Long term (current) use of oral hypoglycemic drugs; Z79.890 Hormone replacement therapy; Z99.81 Dependence on supplemental oxygen
CPT/HCPCS: 73620; 87070; 87075; 87077; 87081; 87186; 87205; 88304; 88305; 88311

== ENCOUNTER → 2023-01-20 | Outpatient (CLI) | payer MEDICARE ==
[~2023-01-20] VITALS: Ht 193 cm; Wt 119.1 kg
[~2023-01-20] MED LIST changes: +ACHD5005 PO; +CLIN150C2 PO; +DAPA10TA PO; -LOSA100T57 PO; +LOSA100T58 PO
== END | disposition home or self-care (01) ==
LOC: PREOP 10:44
PROVIDERS: ATTEND Podiatrist Foot & Ankle Surgery
DX: Z01.818 Encounter for other preprocedural examination (principal)

== ENCOUNTER 2023-01-23 07:11 | Day surgery (SDC) | payer MEDICARE ==
[2023-01-23] VITALS (10 sets, daily range): BP systolic 122–154; BP diastolic 54–85
[~2023-01-23] VITALS: Ht 193 cm; Wt 119.1 kg
[~2023-01-23 07:11] MED LIST changes: +LACTATED RINGERS 1,000 ML 1,000 ML IV PRN
[2023-01-23] MEDS ORDERED: ceFAZolin INJECTION 1,000 MG in NS (IVPB) 50 ML 50 ML IV ONE (08:00)
[2023-01-23] MEDS ORDERED: LACTATED RINGERS 1,000 ML 1,000 ML IV PRN (08:00)
[2023-01-23] MEDS ORDERED: LIDOCAINE PF 2% 5 ML VIAL ONE (09:26)
[2023-01-23] MEDS ORDERED: proPOfol INJECTION 200 MG/20 ML VIAL IV ONE (09:26)
[2023-01-23] MEDS ORDERED: dexAMETHasone INJ 10 MG/ML 1 ML VIAL ONE (09:26)
[2023-01-23] MEDS ORDERED: ONDANSETRON INJECTION 4 MG/2 ML (SDV) ONE (09:26)
[2023-01-23] MEDS ORDERED: fentaNYL INJECTION 100 MCG/2 ML VIAL ONE (09:27)
[2023-01-23] MEDS ORDERED: morphine INJ 10 MG/ML 1ML (SYR OR VIAL) ONE (09:38)
--- NOTE | 2023-01-23 09:43 | Progress Note-Pre Operative ---
Pre-Operative Progress Note Date of Available H&P: Jan 23, 2023 Date H&P Reviewed: Jan 23, 2023 Time H&P Reviewed: 09:42 Pre-Operative Diagnosis: Osteomyelitis, right 1st metatarsal HIMANSHU NOVA DPVicenta Jan 23, 2023 09:43
[2023-01-23] MEDS ORDERED: VANCOMYCIN 1000 MG/VIAL ONE (10:06)
[2023-01-23] MEDS ORDERED: GENTAMICIN 40 MG/ML ONE (10:06)
[2023-01-23] MEDS ORDERED: SEVOFLURANE (ULTANE) 15 ML INHAL SOLN ONE (10:40)
--- NOTE | 2023-01-23 10:48 | Progress Note-Post Operative ---
Post-Operative Progess Note Surgeon (s)/Way Inspector (s) Surgeon HIMANSHU NOVA DPM Way Inspector: none Pre-Operative Diagnosis Osteomyelitis, right 1st metatarsal Post-Operative Diagnosis Same Procedure & Operative Findings Date of Procedure 01/23/23 Procedure Performed/Findings Amputation of the right 1st metatarsal Anesthesia Type Generaol Estimated Blood Loss Estimated blood loss (mL): minimal Specimens/Packing Specimens Removed right distal 1st metatarsal Packing: Antibiotic beads HIMANSHU NOVA DPM Jan 23, 2023 10:48
--- NOTE | 2023-01-23 10:49 | Anesthesia-General Post-Op ---
General Patient Condition Mental Status/LOC: Same as Preop Cardiovascular: Satisfactory Nausea/Vomiting: Absent Respiratory: Satisfactory Pain: Controlled Complications: Absent Post Op Complications Complications None Follow Up Care/Instructions Patient Instructions None needed. Anesthesia/Patient Condition Patient Condition Patient is doing well, no complaints, stable vital signs, no apparent adverse anesthesia problems. No complications reported per nursing. TAMARA BARGER CRNA Jan 23, 2023 10:49
[2023-01-23] MEDS ORDERED: ACHD5005 PO ×2 (10:54)
[2023-01-23] MEDS ORDERED: morphine INJ 10 MG/ML 1ML (SYR OR VIAL) IVP ONE (11:00)
[2023-01-23] MEDS ORDERED: HYDROcodone/ACETAMINOPHEN 5 MG/325 MG TABLET PO PRN (11:00)
[2023-01-23] MEDS ORDERED: LACTATED RINGERS 1,000 ML 1,000 ML IV SCH (11:00)
[2023-01-23] MEDS ORDERED: ONDANSETRON INJECTION 4 MG/2 ML (SDV) IVP PRN (11:00)
[2023-01-23] MEDS ORDERED: GENTAMICIN 40 MG/ML TOP ONE (11:00)
[2023-01-23] MEDS ORDERED: VANCOMYCIN 1000 MG/VIAL TOP ONE (11:03)
--- NOTE | 2023-01-23 16:45 | Diagnostic Imaging Report ---
EXAMINATION: Right foot radiograph TECHNIQUE: And lateral views of the right foot obtained. HISTORY: POST OP COMPARISON: Right foot radiograph 10/17/2022. FINDINGS: Postsurgical changes from prior trans-metatarsal amputation of the 1st right toe with antibiotic beads placed. No acute fractures. IMPRESSION: Postsurgical changes from prior trans-metatarsal amputation of the 1st right toe with antibiotic beads placed. Dictated by: Dictated on workstation # [id number]
--- NOTE | 2023-01-23 19:23 | OPERATIVE REPORT ---
DATE OF SERVICE: 01/23/2023 SURGEON: Janeth Mosley DPM. PREOPERATIVE DIAGNOSIS: Osteomyelitis, right first metatarsal. POSTOPERATIVE DIAGNOSIS: Osteomyelitis, right first metatarsal. PROCEDURE: Partial amputation of the right first metatarsal. WOUND CLASS: Contaminated. ANESTHESIA: General. HEMOSTASIS: Pneumatic thigh tourniquet at 250 mmHg. INDICATIONS: This 67-year-old male presents complaining of a wound to the right first metatarsal area. The patient has previously undergone an amputation of right hallux and distal first metatarsal. The patient was healing quite nicely until unfortunately he was, I believe, on vacation and was "on the foot too much," developed a full-thickness wound, which had excessive amount of granular and serosanguineous drainage. There were some purulent discharge. X-rays changes between the previous postoperative x-rays and the ones taken in my office after the injury indicated osteolysis of the first distal remaining first metatarsal. Since the lesion did probe down to bone, diagnosis of osteomyelitis was made with cellulitis. He subsequently has been performing local wound care with iodoform packing and has been responding very nicely, at least with soft tissue. No guarantees were extended to the patient and he is willing to proceed. DESCRIPTION OF PROCEDURE: The patient was brought back to the operating table and placed in secure supine position. General anesthetic was then induced. Appropriate timeout was performed. Pneumatic thigh tourniquet was placed on the right lower extremity over several layers padding. The right foot was then prepped and draped in normal sterile manner. The right foot was then elevated allowed to exsanguinate after which the tourniquet was inflated to 250 mmHg. Attention was then directed to the medial aspect of the remaining first metatarsal where a 3.5 cm longitudinal linear incision was created. The incision was deepened down to bone with great care to identify and retract all vital neurovascular structures. The incision was deepened down to bone where subperiosteal dissection was carried out. The area had no active purulence or necrosis. At this time, the bone to the inferior aspect of the remaining first metatarsal was soft and approximately 1 cm section of bone was cut utilizing a power sagittal saw at a superior-anterior to inferior-posterior orientation. This was sent for gross and microscopic evaluation. Some of the substance of the medullary canal was sent for culture and sensitivity. The area was flushed with some sterile water after which a swab culture was taken, especially the inferior aspect of the now open wound. This is the area where it was contiguous with the open wound that was plantar. Next, power irrigation was performed. After this power irrigation was done with normal saline, 3 liters of antibiotic beads were then introduced into the medullary canal as well as the plantar aspect of the now open wound filling the gap. This was with 1 gram of vancomycin and 240 mg gentamicin. No active bleeders were identified and closure was then performed. Deep closure was performed with 4-0 Vicryl and subcutaneous tissue as well as 4-0 Prolene with a simple interrupted stitch for skin closure. Tourniquet was released and capillary refill time was noted to be appropriate for all remaining digits of the right foot. Postoperative dressing consisted of Betadine-soaked Adaptic, sterile 4 x 4's, sterile Kerlix, all secured with Coban wrap. The patient is to be nonweightbearing on the right lower extremity, allow for most appropriate healing. We will see him back in the office in 1 week period of time or sooner, if necessary. Job ID: [id number] DocumentID: [id number] Dictated Date: 01/23/2023 11:02:41 Managed Care Manager Date: 01/23/2023 19:21:00 Dictated By: QUYNH CASTAÑEDA
== END 2023-01-23 07:30 | disposition home or self-care (01) ==
LOC: SDC 07:11
PROVIDERS: ATTEND Podiatrist Foot & Ankle Surgery
DX: M86.9 Osteomyelitis, unspecified (principal); G47.33 Obstructive sleep apnea (adult) (pediatric); E11.65 Type 2 diabetes mellitus with hyperglycemia; E78.2 Mixed hyperlipidemia; E11.22 Type 2 diabetes mellitus with diabetic chronic kidney disease; I12.0 Hypertensive chronic kidney disease with stage 5 chronic kidney disease or end stage renal disease; I25.10 Atherosclerotic heart disease of native coronary artery without angina pectoris; E89.0 Postprocedural hypothyroidism; Z79.890 Hormone replacement therapy; Z99.81 Dependence on supplemental oxygen; Z79.84 Long term (current) use of oral hypoglycemic drugs; Z18.32 Retained tooth; Z87.891 Personal history of nicotine dependence; Z79.01 Long term (current) use of anticoagulants; Z79.4 Long term (current) use of insulin; Z79.899 Other long term (current) drug therapy
CPT/HCPCS: 28810; 73620; 82947; 87070; 87075; 87081; 87205; C1713